=== PATIENT | male | born 1930 | race Caucasian/White ===

== ENCOUNTER 2016-03-10 13:12 | Inpatient (IN) | payer OTHER ==
[~2016-03-10] VITALS: Ht 172.7 cm; Wt 77.3 kg
[~2016-03-10 13:12] MED LIST: ASPEC81 PO; ATOR-22 PO; CLOP1TAB15 PO; FLM4 PO; GLC5 PO; HYDC25 PO; INSDGI SC; METO25TA56 PO; PSYL55.43; [UNRECOGNIZED DRUG - CODE]
[2016-03-10] MEDS ORDERED: LISI-729 PO (14:20)
[2016-03-10] MEDS ORDERED: CHOL1000 PO (14:20)
[2016-03-10] MEDS ORDERED: CYAN10005 PO (14:20)
[2016-03-10] MEDS ORDERED: DOCU100C31 PO (14:20)
[2016-03-10] MEDS ORDERED: AMOX875T PO (14:20)
[2016-03-10] MEDS ORDERED: MAGN400T6 PO (14:20)
[2016-03-10] MEDS ORDERED: NVLG SQ (14:20)
--- NOTE | 2016-03-10 14:21 | DIAGNOSTIC IMAGING REPORT ---
CHEST ONE VIEW PORTABLE CLINICAL HISTORY: Respiratory distress, shortness of breath, cough, fever. COMPARISON STUDY: No previous studies for comparison. FINDINGS: The heart is normal in size. There is no failure. There is suspected underlying emphysema. There is no focal pulmonary consolidation. There is blunting of the lateral costophrenic angle suggesting trace effusions.[ IMPRESSION: Possible trace pleural effusions. No evidence of focal pulmonary consolidation. No evidence of failure. Electronically signed by: Golden Campa M.D. 03/10/2016 2:19 PM Dictated Date/Time: 03/10/2016 2:18 PM
[2016-03-10 15:53] LABS: BASO % 0.4 %; BASO ABS # 0.02 K/uL (0-0.2); COMPLETE YES; EOS % 1.5 %; HEMATOCRIT 39.3 % (42-52); IG% 0.6 %; LYMPH % 19.2 %; LYMPH ABS # 1.02 K/uL (1.2-3.4); MEAN CELL VOLUME 91.2 fL (80-100); MEAN CORPUSCULAR HEMOGLOBIN 31.1 pg (25-34); MEAN CORPUSCULAR HGB CONC 34.1 g/dl (32-36); MEAN PLATELET VOLUME 10.1 fL (7.4-10.4); NEUT % 62.3 %; PLATELET COUNT 146 K/uL (130-400); RED BLOOD COUNT 4.31 M/uL (4.7-6.1); WHITE BLOOD COUNT 5.32 K/uL (4.8-10.8)
[2016-03-10 16:01] LABS: PARTIAL THROMBOPLASTIN RATIO 0.8; PROTHROMBIN TIME (PATIENT) 10.6 SECONDS (9.0-12.0)
[2016-03-10] MEDS ORDERED: OPTIRAY 320 IV PRN (16:15)
[2016-03-10 16:42] LABS: ALT/SGPT 20 U/L (12-78); BLOOD UREA NITROGEN 23 mg/dl (7-18); BUN/CREATININE RATIO 17.5 (10-20); CALCIUM 9.2 mg/dl (8.5-10.1); CARBON DIOXIDE 29 mmol/L (21-32); CHLORIDE 99 mmol/L (98-107); GLUCOSE 89 mg/dl (70-99); POTASSIUM 4.4 mmol/L (3.5-5.1); SODIUM 137 mmol/L (136-145)
[2016-03-10 16:46] LABS: ALB/GLOB RATIO 0.9 (0.9-2); ALKALINE PHOSPHATASE 63 U/L (45-117); AST/SGOT 19 U/L (15-37)
--- NOTE | 2016-03-10 17:26 | EMERGENCY ROOM VISIT NOTE ---
History Report prepared by Fabien: Luci Duffy Under the Supervision of: Dr. Samir Xiong M.D. First contact with patient: 13:48 Chief Complaint: FLU LIKE SX Stated Complaint: COUGH,FEVER [id number] History of Present Illness The patient is an 85 year old male who presents to the Emergency Room with complaints of persistent cough and flu like symptoms over the past 4 weeks. Currently, he is in mild discomfort as he states that he feels generally weak and tired, but he denies specific pain or discomfort. Since the time of onset, patient has had a nonproductive cough as well as shortness of breath, which worsens with attempts of exertion. After having a coughing fit, patient states that has been developing headaches. He also notes sinus congestions and rhinorrhea. Patient states that he has been experiencing intermittent hot flashes and cold chills, which have become worse over the past two days, but he is unsure if he has been febrile as he has not taken his temperature. 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 However, as his symptoms became worse today, he came to the ED for further evaluation. Patient does note feeling nauseous and states that he has been passing gas/burping more frequently, but he denies having abdominal pain, vomiting, diarrhea or urinary symptoms. He is currently on Plavix. Of note he has been on Augmentin, as prescribed by Dr. Medellin, for 2-3 days. Source of History: patient Onset: over the past 4 weeks Position: chest Symptom Intensity: mild Quality: other (cough) Timing: worsening Modifying Factors (Worsening): exertion Associated Symptoms: + SOB, + cough, + headache, + nausea, + weakness, No abdominal pain, No chest pain, No diarrhea, No urinary symptoms, No vomiting Note: Patient has had hot flashes and cold chills, intermittently. Review of Systems See HPI for pertinent positives & negatives. A total of 10 systems reviewed and were otherwise negative. Past Medical & Surgical Medical Problems: (1) BPH (benign prostatic hypertrophy) (2) CAD (coronary artery disease) (3) Chronic sinusitis (4) CKD (chronic kidney disease), stage III (5) DM type 2 (diabetes mellitus, type 2) (6) Hyperlipidemia (7) Hypertension (8) Nasal polyps Surgical Problems: (1) History of cataract surgery (2) S/P coronary artery stent placement (3) S/P tonsillectomy and adenoidectomy (4) Status post Mohs surgery Social History Smoking Status: Never Smoker Marital Status: Housing Status: lives with significant other Occupation Status: retired Current/Historical Medications Scheduled Amoxicillin & Pot Clavulanate (Augmentin 875-125 mg), 1 TAB PO BID Aspirin Enteric Coated (Ecotrin Or Generic *), 81 MG PO DAILY Atorvastatin (Lipitor), 20 MG PO DAILY Cholecalciferol (Vitamin D3), 1,000 UNITS PO DAILY Clopidogrel (Plavix), 75 MG PO DAILY Cyanocobalamin (Vitamin B-12), 1,000 MCG PO DAILY Docusate Sodium (Docusate Sodium), 100 MG PO DAILY Hydrochlorothiazide (Hctz *), 25 MG PO DAILY Insulin Aspart (Novolog), 6-8 UNITS SQ QPM Insulin Glargine (Lantus Solostar), 13 UNITS SC QAM Lisinopril (Zestril), 2.5 MG PO DAILY Magnesium Oxide (Mag-Ox), 400 MG PO DAILY Metoprolol Tartrate (Lopressor) (Lopressor), 25 MG PO DAILY Metronidazole (Topical) (Metrocream), 1 APPLN TOP DAILY Multiple Vitamins W/ Minerals (Centrum Silver Adult 50+), 1 TAB PO DAILY Psyllium (Metamucil Multihealth Fib), 3.4 GM PO DAILY Tamsulosin HCl (Tamsulosin HCl), 0.4 MG PO DAILY Scheduled PRN Ibuprofen (Ibuprofen), 600 MG PO Q6 PRN for Pain Allergies Coded Allergies: No Known Allergies (Verified , ., 03/10/16) Physical Exam Vital Signs Date Time Temp Pulse Resp B/P Pulse Ox O2 Delivery O2 Flow Rate FiO2 03/10/16 17:56 89 17 162/77 95 Room Air 03/10/16 15:40 83 17 133/80 95 Room Air 03/10/16 14:32 104 03/10/16 14:16 95 Room Air 03/10/16 13:26 36.8 88 18 128/69 96 Room Air Physical Exam GENERAL: Patient is in no acute distress. HEENT: No acute trauma, normocephalic atraumatic, mucous membranes moist, no nasal congestion, no scleral icterus. NECK: No stridor, no adenopathy, no meningismus, trachea is midline. LUNGS: Diminished breath sounds, bilaterally. No wheezing or rhonchi. Breath sounds are equal. No respiratory distress. Dry cough noted. HEART: Without murmurs gallops or rubs, regular rate and rhythm. ABDOMEN: Soft, nontender, bowel sounds positive, no hernias, no peritonitis. EXTREMITIES: No cyanosis or edema, full range of motion of all the joints without pain or difficulty, no signs for acute trauma. NEUROLOGIC: Oriented x 3, no acute motor or sensory deficits, no focal weakness. SKIN: No rash, no jaundice, no diaphoresis. Medical Decision & Procedures ER Provider Diagnostic Interpretation: X-ray results as stated below per interpretation by me and the radiologist: CT results as stated below per my review and radiologist interpretation: CHEST ONE VIEW PORTABLE CLINICAL HISTORY: Respiratory distress, shortness of breath, cough, fever. COMPARISON STUDY: No previous studies for comparison. FINDINGS: The heart is normal in size. There is no failure. There is suspected underlying emphysema. There is no focal pulmonary consolidation. There is blunting of the lateral costophrenic angle suggesting trace effusions.[ IMPRESSION: Possible trace pleural effusions. No evidence of focal pulmonary consolidation. No evidence of failure. Electronically signed by: Golden Campa M.D. 03/10/2016 2:19 PM Dictated Date/Time: 03/10/2016 2:18 PM CHEST CTA for PULMONARY ARTERIES CT DOSE: 392.03 mGy.cm HISTORY: Cough. Fever. TECHNIQUE: Multiaxial CT images of the chest were performed following the intravenous administration of contrast to evaluate the pulmonary arteries. Maximal intensity projection images were also obtained. COMPARISON STUDY: Chest 03/10/2016. FINDINGS: There is a normal caliber thoracic aorta with no evidence for dissection. There is no evidence for pulmonary embolus. No pleural effusions. No pneumothorax. The liver and spleen are unremarkable. No mediastinal or hilar lymphadenopathy. The central airways are patent. Mild motion artifact. Faint patchy perihilar groundglass densities. There are few subcentimeter nodules within the right lower lobe with the largest measuring 6 mm. Mild bronchial wall thickening. There is a 12 mm hypodense lesion within the uncinate process of the pancreas. A few thyroid nodules with the largest on the right measuring 3.5 cm. IMPRESSION: 1. No evidence for pulmonary embolus. 2. Faint patchy perihilar groundglass densities. This likely represents a mild pneumonitis. 3. A few subcentimeter nodules within the right lower lobe with the largest Laboratory Results Test 03/10/16 15:22 03/10/16 15:30 Immature Granulocyte % (Auto) 0.6 % White Blood Count 5.32 K/uL (4.8-10.8) Red Blood Count 4.31 M/uL (4.7-6.1) Hemoglobin 13.4 g/dL (14.0-18.0) Hematocrit 39.3 % (42-52) Mean Corpuscular Volume 91.2 fL (80-100) Mean Corpuscular Hemoglobin 31.1 pg (25-34) Mean Corpuscular Hemoglobin Concent 34.1 g/dl (32-36) Platelet Count 146 K/uL (130-400) Mean Platelet Volume 10.1 fL (7.4-10.4) Neutrophils (%) (Auto) 62.3 % Lymphocytes (%) (Auto) 19.2 % Monocytes (%) (Auto) 16.0 % Eosinophils (%) (Auto) 1.5 % Basophils (%) (Auto) 0.4 % Neutrophils # (Auto) 3.32 K/uL (1.4-6.5) Lymphocytes # (Auto) 1.02 K/uL (1.2-3.4) Monocytes # (Auto) 0.85 K/uL (0.11-0.59) Eosinophils # (Auto) 0.08 K/uL (0-0.5) Basophils # (Auto) 0.02 K/uL (0-0.2) Immature Granulocyte # (Auto) 0.03 K/uL (0.00-0.02) Prothrombin Time 10.6 SECONDS (9.0-12.0) Prothromb Time International Ratio 1.0 (0.9-1.1) Activated Partial Thromboplast Time 20.7 SECONDS (21.0-31.0) Partial Thromboplastin Ratio 0.8 Total Bilirubin 0.4 mg/dl (0.2-1) Aspartate Amino Transf (AST/SGOT) 19 U/L (15-37) Alanine Aminotransferase (ALT/SGPT) 20 U/L (12-78) Alkaline Phosphatase 63 U/L (45-117) Troponin I < 0.015 ng/ml (0-0.045) Total Protein 7.1 gm/dl (6.4-8.2) Albumin 3.3 gm/dl (3.4-5.0) Globulin 3.8 gm/dl (2.5-4.0) Albumin/Globulin Ratio 0.9 (0.9-2) Influenza Type A (RT-PCR) Neg for Influ A (NEG) Influenza Type B (RT-PCR) Neg for Influ B (NEG) Laboratory results reviewed by me. Medications Administered Medications (Trade) Dose Ordered Sig/Guevara Route Start Time Stop Time Status Last Admin Dose Admin Levofloxacin (Levaquin / D5W) 750 mg NOW STAT IV 03/10/16 18:21 03/10/16 18:22 DC 03/10/16 18:38 750 MG ECG Indication: SOB/dyspnea Rate (beats per minute): 88 Rhythm: normal sinus Findings: no acute ischemic change, no ectopy ED Course 1350: The patient was evaluated in room B11. A complete history and physical exam was performed. 1600: Upon reevaluation, the patient was doing well and appeared to be resting more comfortably. He will go to CT for further testing. 181: I reevaluated the patient at this time and updated him on the results of his radiology reports and lab tests. The hospitalist will be contacted. 182: Levofloxacin 750 mg IV was ordered. 182: After discussion with Leona Cardoza PA-C, the patient will continue to be evaluated by the [facility] hospitalist for further management. The patient verbalized his understanding and agreement with this treatment plan. Medical Decision The patient is an 85 year old male who presents to the ED with complaints of worsening shortness cough and flu like symptoms over the past 4 weeks. Differential diagnoses considered include pneumonia, bronchitis, CHF, cardiac ischemia, influenza, malignancy, and PE. There is no leukocytosis or concerning anemia. No significant electrolyte abnormality, kidney failure or hepatitis. There is no coagulopathy. EKG shows a sinus rhythm, no acute ischemia. Cardiac enzyme testing times one is not consistent with acute cardiac injury. Chest x-ray does not show any pneumonia, CHF or pneumothorax. Influenza testing was negative. Chest CT shows a diffuse pneumonia, there was no pneumothorax or evidence for PE. The patient was given IV Levaquin. He is already on Augmentin and has not noted any improvement, he has worsening shortness of breath with exertion. Given the ongoing symptoms, given the failure of outpatient treatment, admission /observation was warranted. I spoke to the patient and case management. The on -call hospitalist was consulted. Consults Time Called: [id number] Consulting Physician: Leona Jonas Returned Call: [phone] Discussed the patient's case. He will continue to be evaluated by the [facility] hospitalist for further management. Impression Primary Impression: Pneumonia Additional Impressions: Shortness of breath Failure of outpatient treatment Scribe Attestation The scribe's documentation has been prepared under my direction and personally reviewed by me in its entirety. I confirm that the note above accurately reflects all work, treatment, procedures, and medical decision making performed by me. Departure Information Dispostion Being Evaluated By Hospitalist ([facility]) Referrals Houston Leyva M.D. (PCP) Problem Qualifiers
[2016-03-10 17:41] LABS: INFLUENZA A PCR Neg for Influ A (NEG); INFLUENZA B PCR Neg for Influ B (NEG)
--- NOTE | 2016-03-10 17:56 | DIAGNOSTIC IMAGING REPORT ---
CHEST CTA for PULMONARY ARTERIES CT DOSE: 392.03 mGy.cm HISTORY: Cough. Fever. TECHNIQUE: Multiaxial CT images of the chest were performed following the intravenous administration of contrast to evaluate the pulmonary arteries. Maximal intensity projection images were also obtained. COMPARISON STUDY: Chest 03/10/2016. FINDINGS: There is a normal caliber thoracic aorta with no evidence for dissection. There is no evidence for pulmonary embolus. No pleural effusions. No pneumothorax. The liver and spleen are unremarkable. No mediastinal or hilar lymphadenopathy. The central airways are patent. Mild motion artifact. Faint patchy perihilar groundglass densities. There are few subcentimeter nodules within the right lower lobe with the largest measuring 6 mm. Mild bronchial wall thickening. There is a 12 mm hypodense lesion within the uncinate process of the pancreas. A few thyroid nodules with the largest on the right measuring 3.5 cm. IMPRESSION: 1. No evidence for pulmonary embolus. 2. Faint patchy perihilar groundglass densities. This likely represents a mild pneumonitis. 3. A few subcentimeter nodules within the right lower lobe with the largest measuring 6 mm. Please refer to the chart below for recommended follow-up. 4. A 3.5 cm right thyroid nodule. 5. A 12 mm hypodense lesion within the uncinate process of the pancreas. 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 Please refer to below summary of Fleischner criteria recommendations for follow-up of incidental CT nodules (Minor Kinney, Guidelines for management of small pulmonary nodules detected on CT scans: A statement from the Fleischner Society, Radiology 237: [phone].) Low Risk Patient: Minimal or no smoking or other known risk factors for malignancy <=4 mm: No follow-up needed. >4-6 mm: Initial follow-up CT at 12 months; if unchanged, no further follow-up. >6-8 mm: Initial follow-up CT at 6-12 months then at 18-24 months if no change. >8 mm: Follow-up CT at \R\3, 9, 24 months, or PET and/or biopsy. High Risk Patient: History of smoking or other known risk factors <=4 mm: Follow-up at 12 months; if unchanged, no further follow-up. >4-6 mm: Initial follow-up CT at 6-12 months then at 18-24 months if no change. >6-8 mm: Initial follow-up CT at 3-6 months then at 9-12 and 24 months if no change. >8 mm: Same as low risk patient. Note: Nodule size measured as average of length and width. Ground glass or partly solid nodules may require longer follow-up to exclude indolent adenocarcinoma. Electronically signed by: Hugo Garcia M.D. 03/10/2016 5:54 PM Dictated Date/Time: 03/10/2016 5:46 PM
[2016-03-10] MEDS ORDERED: LEVAQUIN 750MG / 150ML D5W IV STA (18:21)
[2016-03-10] MEDS ORDERED: ACETAMINOPHEN 325 MG TAB PO PRN (19:30)
[2016-03-10] MEDS ORDERED: FLM4 PO (19:33)
[2016-03-10] MEDS ORDERED: INSDGIPEN SC (19:33)
[2016-03-10] MEDS ORDERED: METR0.754 TOP (19:33)
[2016-03-10] MEDS ORDERED: MULT-845 PO (19:33)
[2016-03-10] MEDS ORDERED: PSYL58.618 PO (19:33)
[2016-03-10] MEDS ORDERED: MTR600 PO (19:33)
[2016-03-10] MEDS ORDERED: GLUCAGON FOR INJ 1 MG VIAL SQ PRN (19:45)
[2016-03-10] MEDS ORDERED: DEXTROSE 50% 50 ML SYR IV PRN (19:45)
[2016-03-10] MEDS ORDERED: GLUCOSE 10 TABS/TUBE PO PRN (19:45)
[2016-03-10] MEDS ORDERED: GLUCOSE 40% GEL 15 GM TUBE PO PRN (19:45)
[2016-03-10] MEDS ORDERED: HYDROCODONE/HOMATROPINE SYRUP 5MG/1.5MG 5ML UDP PO STA (20:10)
[2016-03-10] MEDS ORDERED: HYDROCODONE/HOMATROPINE SYRUP 5MG/1.5MG 5ML UDP PO PRN (20:15)
[2016-03-10 20:20] VITALS: O2SAT 95; Ht 172.7 cm; Wt 77.3 kg
--- NOTE | 2016-03-10 20:20 | History and Physical ---
History & Physical Date & Time of Service: Mar 10, 2016 at 19:38 Chief Complaint: Cough,Fever [id number] Primary Care Physician: Houston Leyva M.D. History of Present Illness Source: patient, family ( and son at bedside), clinic records This is an 85 year old male with PMH of CAD, DM type 2, HTN, HL, CKD stage III, who presents to the ED with cough. Patient follows with Dr. Leyva for primary care. Illness began approximately 3 weeks ago with dry cough, nasal congestion, intermittent RANDALL attributed to cough, increased JAQUEZ, lethargy, subjective chills and sweats. Patient states JAQUEZ was intermittent in the past several months but worsened a few weeks ago when he became ill. He is now JAQUEZ with one set of stairs. Patient was seen by Dr. Medellin on 03/05 and was prescribed Augmentin. Patient started Augmentin on 03/06 but stopped taking it over the weekend as he felt his symptoms were worsening despite the antibiotic. His appetite has been poor since illness began and reports weight loss of 10 lb in past few weeks. Denies aspiration. He denies sore throat, ear ache, chest pain, dyspnea at rest , abdominal pain, nausea, vomiting, diarrhea, urinary changes, edema, calf pain. Denies hx of lung disease. No recent hospitalization. No recent sick contact with URI symptoms. On review of [facility] records patient was seen in [place] ER on 02/08/16 for SOB and had CXR, CT chest, EKG, labs- unremarkable as per clinic follow up visit note. Past Medical/Surgical History Medical Problems: (1) BPH (benign prostatic hypertrophy) Status: Chronic (2) CAD (coronary artery disease) Status: Chronic (3) CKD (chronic kidney disease), stage III Status: Chronic (4) DM type 2 (diabetes mellitus, type 2) Status: Chronic (5) Hyperlipidemia Status: Chronic (6) Hypertension Status: Chronic Surgical Problems: (1) History of cataract surgery Status: Chronic (2) S/P coronary artery stent placement Permanent Comment: 2 stents approximately 2006 Status: Chronic (3) S/P tonsillectomy and adenoidectomy Status: Chronic (4) Status post Mohs surgery Status: Chronic Family History Diabetes mellitus MOTHER FH: cancer FATHER (colon CA) Hypertension DAUGHTER SON Social History Smoking Status: Former Smoker (quit 60 years ago. prior 1/2 ppd x 5 years.) Alcohol Use: none Drug Use: none Marital Status: Housing status: lives with significant other Occupational Status: retired Multi-Drug Resistant Organisms History of MDRO: No Allergies Coded Allergies: No Known Allergies (Verified , ., 03/10/16) Home Medications Scheduled Amoxicillin & Pot Clavulanate (Augmentin 875-125 mg), 1 TAB PO BID Aspirin Enteric Coated (Ecotrin Or Generic *), 81 MG PO DAILY Atorvastatin (Lipitor), 20 MG PO DAILY Cholecalciferol (Vitamin D3), 1,000 UNITS PO DAILY Clopidogrel (Plavix), 75 MG PO DAILY Cyanocobalamin (Vitamin B-12), 1,000 MCG PO DAILY Docusate Sodium (Docusate Sodium), 100 MG PO DAILY Hydrochlorothiazide (Hctz *), 25 MG PO DAILY Insulin Aspart (Novolog), 6-8 UNITS SQ QPM Insulin Glargine (Lantus Solostar), 13 UNITS SC QAM Lisinopril (Zestril), 2.5 MG PO DAILY Magnesium Oxide (Mag-Ox), 400 MG PO DAILY Metoprolol Tartrate (Lopressor) (Lopressor), 25 MG PO DAILY Metronidazole (Topical) (Metrocream), 1 APPLN TOP DAILY Multiple Vitamins W/ Minerals (Centrum Silver Adult 50+), 1 TAB PO DAILY Psyllium (Metamucil Multihealth Fib), 3.4 GM PO DAILY Tamsulosin HCl (Tamsulosin HCl), 0.4 MG PO DAILY Scheduled PRN Ibuprofen (Ibuprofen), 600 MG PO Q6 PRN for Pain Review of Systems Constitutional: + chills, + problem reported (subjective warmth), + sweats, + weight loss (10 lb in past few weeks) Eyes: No worsening of vision ENT: + nasal symptoms, + problem reported (chronically hard of hearing. has hearing aid. no ear ache.), No sore throat, No trouble swallowing Respiratory: + cough, + dyspnea on exertion, No dyspnea at rest, No sputum Cardiovascular: No chest pain, No orthopnea Abdomen: + problem reported (increased belching), No diarrhea, No nausea, No pain, No vomiting Musculoskeletal: No calf pain, No muscle pain (no diffuse myalgias) Genitourinary - Male: No dysuria, No urinary frequency Neurologic: + problem reported (headache) Endocrine: + problem reported (was having hyperglycemia at home recently and insulin was increased) Hematologic / Lymphatic: No swollen lymph nodes Integumentary: No new/changing skin lesions Physical Exam Vital Signs Date Time Temp Pulse Resp B/P Pulse Ox O2 Delivery O2 Flow Rate FiO2 03/10/16 17:56 89 17 162/77 95 Room Air 03/10/16 15:40 83 17 133/80 95 Room Air 03/10/16 14:32 104 03/10/16 14:16 95 Room Air 03/10/16 13:26 36.8 88 18 128/69 96 Room Air General Appearance: WD/WN, no apparent distress, + pertinent finding (pleasant elderly female ) Head: normocephalic, atraumatic Eyes: normal inspection, PERRL, EOMI, sclerae normal ENT: pharynx normal, + pertinent finding (bilateral canals obstructed by cerumen. hard of hearing. ) Neck: supple, no adenopathy, trachea midline Respiratory/Chest: no respiratory distress, no accessory muscle use, + decreased breath sounds, + pertinent finding (no wheezing, crackles, rhonchi) Cardiovascular: regular rate, rhythm, no murmur Abdomen/GI: normal bowel sounds, non tender, soft Extremities/Musculoskelatal: normal inspection, no calf tenderness, no pedal edema Neurologic/Psych: alert, normal mood/affect, oriented x 3, + pertinent finding (grossly nonfocal) Skin: normal color, warm/dry, + pertinent finding (plantar wart on left foot) Diagnostics Laboratory Results Results Past 24 Hours Test 03/10/16 15:22 03/10/16 15:30 Range/Units White Blood Count 5.32 4.8-10.8 K/uL Red Blood Count 4.31 4.7-6.1 M/uL Hemoglobin 13.4 14.0-18.0 g/dL Hematocrit 39.3 42-52 % Mean Corpuscular Volume 91.2 80-100 fL Mean Corpuscular Hemoglobin 31.1 25-34 pg Mean Corpuscular Hemoglobin Concent 34.1 32-36 g/dl Platelet Count 146 130-400 K/uL Mean Platelet Volume 10.1 7.4-10.4 fL Neutrophils (%) (Auto) 62.3 % Lymphocytes (%) (Auto) 19.2 % Monocytes (%) (Auto) 16.0 % Eosinophils (%) (Auto) 1.5 % Basophils (%) (Auto) 0.4 % Neutrophils # (Auto) 3.32 1.4-6.5 K/uL Lymphocytes # (Auto) 1.02 1.2-3.4 K/uL Monocytes # (Auto) 0.85 0.11-0.59 K/uL Eosinophils # (Auto) 0.08 0-0.5 K/uL Basophils # (Auto) 0.02 0-0.2 K/uL RDW Standard Deviation 42.0 36.4-46.3 fL RDW Coefficient of Variation 12.5 11.5-14.5 % Immature Granulocyte % (Auto) 0.6 % Immature Granulocyte # (Auto) 0.03 0.00-0.02 K/uL Prothrombin Time 10.6 9.0-12.0 SECONDS Prothromb Time International Ratio 1.0 0.9-1.1 Activated Partial Thromboplast Time 20.7 21.0-31.0 SECONDS Partial Thromboplastin Ratio 0.8 Sodium Level 137 136-145 mmol/L Potassium Level 4.4 3.5-5.1 mmol/L Chloride Level 99 98-107 mmol/L Carbon Dioxide Level 29 21-32 mmol/L Anion Gap 9.0 3-11 mmol/L Blood Urea Nitrogen 23 7-18 mg/dl Creatinine 1.30 0.60-1.40 mg/dl Est Creatinine Clear Calc Drug Dose 39.5 ml/min Estimated GFR () 57.3 Estimated GFR (Non- 49.4 BUN/Creatinine Ratio 17.5 10-20 Random Glucose 89 70-99 mg/dl Calcium Level 9.2 8.5-10.1 mg/dl Total Bilirubin 0.4 0.2-1 mg/dl Aspartate Amino Transf (AST/SGOT) 19 15-37 U/L Alanine Aminotransferase (ALT/SGPT) 20 12-78 U/L Alkaline Phosphatase 63 45-117 U/L Troponin I < 0.015 0-0.045 ng/ml Total Protein 7.1 6.4-8.2 gm/dl Albumin 3.3 3.4-5.0 gm/dl Globulin 3.8 2.5-4.0 gm/dl Albumin/Globulin Ratio 0.9 0.9-2 Influenza Type A (RT-PCR) Neg for Influ A NEG Influenza Type B (RT-PCR) Neg for Influ B NEG Microbiology Results 03/10/16 Blood Culture, Received Pending 03/10/16 Blood Culture, Received Pending Diagnostic Radiology CHEST ONE VIEW PORTABLE CLINICAL HISTORY: Respiratory distress, shortness of breath, cough, fever. COMPARISON STUDY: No previous studies for comparison. FINDINGS: The heart is normal in size. There is no failure. There is suspected underlying emphysema. There is no focal pulmonary consolidation. There is blunting of the lateral costophrenic angle suggesting trace effusions.[ IMPRESSION: Possible trace pleural effusions. No evidence of focal pulmonary consolidation. No evidence of failure. CHEST CTA for PULMONARY ARTERIES CT DOSE: 392.03 mGy.cm HISTORY: Cough. Fever. TECHNIQUE: Multiaxial CT images of the chest were performed following the intravenous administration of contrast to evaluate the pulmonary arteries. Maximal intensity projection images were also obtained. COMPARISON STUDY: Chest 03/10/2016. FINDINGS: There is a normal caliber thoracic aorta with no evidence for dissection. There is no evidence for pulmonary embolus. No pleural effusions. No pneumothorax. The liver and spleen are unremarkable. No mediastinal or hilar lymphadenopathy. The central airways are patent. Mild motion artifact. Faint patchy perihilar groundglass densities. There are few subcentimeter nodules within the right lower lobe with the largest measuring 6 mm. Mild bronchial wall thickening. There is a 12 mm hypodense lesion within the uncinate process of the pancreas. A few thyroid nodules with the largest on the right measuring 3.5 cm. IMPRESSION: 1. No evidence for pulmonary embolus. 2. Faint patchy perihilar groundglass densities. This likely represents a mild pneumonitis. 3. A few subcentimeter nodules within the right lower lobe with the largest measuring 6 mm. Please refer to the chart below for recommended follow-up. 4. A 3.5 cm right thyroid nodule. 5. A 12 mm hypodense lesion within the uncinate process of the pancreas. 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 Please refer to below summary of Fleischner criteria recommendations for follow-up of incidental CT nodules ([place]or [place], Guidelines for management of small pulmonary nodules detected on CT scans: A statement from the Fleischner Society, Radiology 237: [phone].) Low Risk Patient: Minimal or no smoking or other known risk factors for malignancy <=4 mm: No follow-up needed. >4-6 mm: Initial follow-up CT at 12 months; if unchanged, no further follow-up. >6-8 mm: Initial follow-up CT at 6-12 months then at 18-24 months if no change. >8 mm: Follow-up CT at \R\3, 9, 24 months, or PET and/or biopsy. High Risk Patient: History of smoking or other known risk factors <=4 mm: Follow-up at 12 months; if unchanged, no further follow-up. >4-6 mm: Initial follow-up CT at 6-12 months then at 18-24 months if no change. >6-8 mm: Initial follow-up CT at 3-6 months then at 9-12 and 24 months if no change. >8 mm: Same as low risk patient. Note: Nodule size measured as average of length and width. Ground glass or partly solid nodules may require longer follow-up to exclude indolent adenocarcinoma. EKG NSR, no T wave or ST abnormalities Impression Assessment and Plan COMMUNITY ACQUIRED PNEUMONIA Failed outpatient treatment with Augmentin CT chest- neg for PE, + 2. faint patchy perihilar ground glass densities- likely mild pneumonitis Influenza PCR negative Afebrile, no leukocytosis Blood cultures pending Not bringing up any sputum to culture Received 1 dose empiric Levaquin in ER Continue Levaquin with renal dosing for Creat clearance 39.5 CAD S/p stents x 2 approximately 2006 Normal stress test 11/07/14 Stable, no angina Continue aspirin, statin, Plavix, PITO-I, BB Follows with Dr. Perry DM TYPE 2 Recent hyperglycemia at home, then insulin adjusted- random glucose 89 in ER Continue Lantus Insulin sliding scale Check A1c in am HYPERTENSION BP mildly elevated in ER Continue HCTZ, lisinopril, metoprolol CKD STAGE III Cr is stable from baseline of 1.4 Monitor renal function Avoid nephrotoxins LUNG NODULES Noted on CT chest Patient made aware Monitor as outpatient PANCREATIC CYST Noted on CT chest Patient made aware F/u as outpatient THYROID NODULE Noted on CT chest Follow up as outpatient BPH Continue Flomax DVT PROPHYLAXIS Lovenox SQ CODE STATUS Full code per my discussion with the patient DISPOSITION Lives with Follows with Dr. Leyva for primary care and Dr. Perry for cardiology Patient seen in collaboration with Dr. Mckeon. Please see his addendum. Attending Addendum: The patient was seen and examined in ER Complains of bouts of cough ,little sputum Moderate SOB at rest ,no chest pain Chills but no fever O/E Hemodynamically stable Chest-decreased breath sound bilaterally ,crackles at the bases Heart-regular,no murmur appreciated Abdomen-benign ,no masses,bowel sound present Extremities-no edema Labs and imaging studies were reviewed Has CAP Agree with the assessment and plan. DR Yessy Mckeon VTE Prophylaxis VTE Risk Assessment Done? Y/N: Yes Risk Level: Moderate
[2016-03-10 20:47] VITALS: BP 150/72; PULSE 93; TEMP 36.7; O2SAT 95
[2016-03-10] MEDS: CARBAMIDE PEROXIDE 6.5% 15 ML BTL OT SCH (22:12)
[2016-03-10] MEDS: INSULIN ASPART 100 UNITS/ML 3 ML PEN SC SCH (22:18)
[2016-03-10] MEDS: ENOXAPARIN 40 MG/0.4 ML SYR SQ SCH (22:19)
[2016-03-10 23:07] VITALS: BP 151/84; PULSE 94; TEMP 36.8; O2SAT 96
[2016-03-11] MEDS: ONDANSETRON INJ 2 MG/ML 2 ML VIAL IV PRN ×2 (05:28→13:00)
[2016-03-11 05:55] LABS: HEMATOCRIT 37.4 % (42-52); MEAN CORPUSCULAR HEMOGLOBIN 30.4 pg (25-34); MEAN CORPUSCULAR HGB CONC 33.4 g/dl (32-36); MEAN PLATELET VOLUME 10.3 fL (7.4-10.4); PLATELET COUNT 137 K/uL (130-400); RED BLOOD COUNT 4.11 M/uL (4.7-6.1); WHITE BLOOD COUNT 5.64 K/uL (4.8-10.8)
[2016-03-11 06:27] LABS: ESTIMATED AVERAGE GLUCOSE 154 mg/dl; HA1C FLAG Normal (Normal)
[2016-03-11 06:31] LABS: BUN/CREATININE RATIO 15.5 (10-20); CALCIUM 8.7 mg/dl (8.5-10.1); CREATININE 1.3 mg/dl (0.60-1.40); MAGNESIUM 1.7 mg/dl (1.8-2.4); POTASSIUM 4.2 mmol/L (3.5-5.1)
[2016-03-11 06:51] VITALS: BP 130/75; PULSE 84; TEMP 36.5; O2SAT 93
[2016-03-11 08:00] VITALS: O2SAT 93
[2016-03-11] MEDS: CARBAMIDE PEROXIDE 6.5% 15 ML BTL OT SCH ×2 (08:29→21:15)
[2016-03-11] MEDS: CEROVITE ADV FORMULA TAB PO SCH (08:30)
[2016-03-11] MEDS: MAGNESIUM OXIDE 400 MG TAB PO SCH (08:30)
[2016-03-11] MEDS: TAMSULOSIN HCL 0.4 MG CAP PO SCH (08:30)
[2016-03-11] MEDS: HYDROCHLOROTHIAZIDE 25 MG TAB PO SCH (08:30)
[2016-03-11] MEDS: LISINOPRIL 2.5 MG TAB PO SCH (08:30)
[2016-03-11] MEDS: METOPROLOL TARTRATE 25 MG TAB PO SCH (08:30)
[2016-03-11] MEDS: CLOPIDOGREL BISULFATE 75 MG TAB PO SCH (08:32)
[2016-03-11] MEDS: ATORVASTATIN 20 MG TAB PO SCH (08:32)
[2016-03-11] MEDS: ASPIRIN 81 MG ECTAB PO SCH (08:32)
[2016-03-11] MEDS: CYANOCOBALAMIN 500 MCG TAB (VIT B-12) PO SCH (08:32)
[2016-03-11] MEDS: PSYLLIUM 58.6% PWD PACK S\\F PO SCH (08:33)
[2016-03-11] MEDS: CHOLECALCIFEROL 1000 INTER.UNIT TAB PO SCH (08:33)
[2016-03-11] MEDS ORDERED: DOCUSATE SODIUM 100 MG CAP PO SCH (09:00)
[2016-03-11] MEDS: INSULIN ASPART 100 UNITS/ML 3 ML PEN SC SCH ×4 (09:19→21:20)
[2016-03-11] MEDS: INSULIN GLARGINE SOLOSTAR 100 UNITS/ML 3 ML PEN SC SCH (09:20)
[2016-03-11] MEDS ORDERED: DOCUSATE SODIUM 100 MG CAP PO ONE (14:00)
[2016-03-11] MEDS ORDERED: BISACODYL 5 MG TABEC PO ONE (14:00)
[2016-03-11] MEDS ORDERED: PANTOprazole SOD 40 MG TAB PO ONE (14:00)
--- NOTE | 2016-03-11 15:06 | Progress Note ---
Subjective Date of Service: Mar 11, 2016. Subjective Pt evaluation today including: conversation w/ patient, physical exam, lab review, review of studies, review of inpatient medication list Saw/examined the patient in room 262 Complaining of nausea this morning +constipation - no BM for two days +cough +reflux symptoms Problem List Medical Problems: (1) Failure of outpatient treatment Status: Acute (2) Pneumonia Status: Acute (3) Shortness of breath Status: Acute Review of Systems Constitutional: No chills, No fever Respiratory: + cough, + dyspnea on exertion, + shortness of breath, + sputum, No wheezing Cardiac: No chest pain, No edema, No palpitations Abdomen: + constipation, + nausea, No GI bleeding, No diarrhea, No pain, No vomiting Medications Current Inpatient Medications Medications (Trade) Dose Ordered Sig/Guevara Route Start Time Stop Time Status Last Admin Dose Admin Ioversol (Optiray 320) 125 ml UD PRN IV 03/10/16 16:15 03/14/16 16:14 Enoxaparin Sodium (Lovenox Inj) 40 mg Q24H SQ 03/10/16 21:00 04/09/16 20:59 03/10/16 22:19 40 MG Acetaminophen (Tylenol Tab) 650 mg Q4H PRN PO 03/10/16 19:30 04/09/16 19:29 Ondansetron HCl 4 mg 4 mg Q6H PRN IV 03/10/16 19:30 04/09/16 19:29 03/11/16 13:00 4 MG Levofloxacin/Prmx (Levaquin / D5W/ Premixed D5W) 150 ml @ 100 mls/hr Q2D@1800 IV 03/12/16 18:00 03/17/16 17:59 Aspirin (Ecotrin Tab) 81 mg DAILY PO 03/11/16 09:00 04/10/16 08:59 03/11/16 08:32 81 MG Atorvastatin Calcium (Lipitor Tab) 20 mg DAILY PO 03/11/16 09:00 04/10/16 08:59 03/11/16 08:32 20 MG Cholecalciferol (Vitamin D Tab) 1,000 inter.unit DAILY PO 03/11/16 09:00 04/10/16 08:59 03/11/16 08:33 1,000 INTER.UNIT Clopidogrel Bisulfate (plAVix TAB) 75 mg DAILY PO 03/11/16 09:00 04/10/16 08:59 03/11/16 08:32 75 MG Cyanocobalamin (Vitamin B-12 Tab) 1,000 mcg DAILY PO 03/11/16 09:00 04/10/16 08:59 03/11/16 08:32 1,000 MCG Docusate Sodium (coLACE CAP) 100 mg DAILY PO 03/11/16 09:00 04/10/16 08:59 03/11/16 08:32 100 MG Hydrochlorothiazide (Hydrochlorothiazide Tab) 25 mg DAILY PO 03/11/16 09:00 04/10/16 08:59 03/11/16 08:30 25 MG Insulin Glargine (Lantus Solostar Pen) 13 unit QAM SC 03/11/16 09:00 04/10/16 08:59 03/11/16 09:20 13 UNIT Lisinopril (Zestril Tab) 2.5 mg DAILY PO 03/11/16 09:00 04/10/16 08:59 03/11/16 08:30 2.5 MG Magnesium Oxide (Mag-Ox Tab) 400 mg DAILY PO 03/11/16 09:00 04/10/16 08:59 03/11/16 08:30 400 MG Metoprolol Tartrate (Lopressor Tab) 25 mg DAILY PO 03/11/16 09:00 04/10/16 08:59 03/11/16 08:30 25 MG Multivitamins/ Minerals (Multivitamin W/ Minerals Tab) 1 tab DAILY PO 03/11/16 09:00 04/10/16 08:59 03/11/16 08:30 1 TAB Tamsulosin HCl (Flomax Cap) 0.4 mg DAILY PO 03/11/16 09:00 04/10/16 08:59 03/11/16 08:30 0.4 MG Miscellaneous Information (Order Awaiting Action) 1 ea QS N/A 03/11/16 00:00 04/10/16 00:00 Psyllium Hydrophilic Mucilloid (Metamucil Powder) 1 pkt DAILY PO 03/11/16 09:00 04/10/16 08:59 03/11/16 08:33 1 PKT Insulin Aspart (novoLOG ASPART) SLIDING SCALE If C... ACHS SC 03/10/16 21:00 04/09/16 20:59 03/11/16 12:58 5 UNITS Glucose (Glucose 40% Gel) 15-30 GRAMS 15 GRAMS... UD PRN PO 03/10/16 19:45 04/09/16 19:44 Glucose (Glucose Chew Tab) 4-8 Tablets 4 Tabl... UD PRN PO 03/10/16 19:45 04/09/16 19:44 Dextrose (Dextrose 50% 50ML Syringe) 25-50ML OF 50% DW IV FOR... UD PRN IV 03/10/16 19:45 04/09/16 19:44 Glucagon (Glucagon Inj) 1 mg UD PRN SQ 03/10/16 19:45 04/09/16 19:44 Carbamide Peroxide (Earwax Removal Soln) 5 drops BID OT 03/10/16 21:00 03/14/16 20:59 03/11/16 08:29 5 DROPS Hydrocodone Bit/ Homatropine Methylb (Hycodan Syrup) 5 ml Q6H PRN PO 03/10/16 20:15 03/24/16 20:14 Objective Vital Signs Date Time Temp Pulse Resp B/P Pulse Ox O2 Delivery O2 Flow Rate FiO2 03/11/16 08:00 93 Room Air 03/11/16 06:51 36.5 84 16 130/75 93 Room Air 03/11/16 00:15 Room Air 03/10/16 23:07 36.8 94 18 151/84 96 Room Air 03/10/16 20:47 36.7 93 18 150/72 95 Room Air 03/10/16 20:20 95 Room Air 03/10/16 20:01 98 17 145/79 95 Room Air 03/10/16 17:56 89 17 162/77 95 Room Air 03/10/16 15:40 83 17 133/80 95 Room Air 03/10/16 14:32 104 03/10/16 14:16 95 Room Air Physical Exam General Appearance: no apparent distress Respiratory/Chest: lungs clear, normal breath sounds, no respiratory distress, no accessory muscle use Cardiovascular: regular rate, rhythm, no edema, no murmur Abdomen: normal bowel sounds, non tender, soft Extremities: normal inspection, no pedal edema Laboratory Results Last 24 Hours Test 03/10/16 15:22 03/10/16 15:30 03/10/16 21:04 03/11/16 05:36 White Blood Count 5.32 K/uL 5.64 K/uL Red Blood Count 4.31 M/uL 4.11 M/uL Hemoglobin 13.4 g/dL 12.5 g/dL Hematocrit 39.3 % 37.4 % Mean Corpuscular Volume 91.2 fL 91.0 fL Mean Corpuscular Hemoglobin 31.1 pg 30.4 pg Mean Corpuscular Hemoglobin Concent 34.1 g/dl 33.4 g/dl Platelet Count 146 K/uL 137 K/uL Mean Platelet Volume 10.1 fL 10.3 fL Neutrophils (%) (Auto) 62.3 % Lymphocytes (%) (Auto) 19.2 % Monocytes (%) (Auto) 16.0 % Eosinophils (%) (Auto) 1.5 % Basophils (%) (Auto) 0.4 % Neutrophils # (Auto) 3.32 K/uL Lymphocytes # (Auto) 1.02 K/uL Monocytes # (Auto) 0.85 K/uL Eosinophils # (Auto) 0.08 K/uL Basophils # (Auto) 0.02 K/uL RDW Standard Deviation 42.0 fL 41.5 fL RDW Coefficient of Variation 12.5 % 12.5 % Immature Granulocyte % (Auto) 0.6 % Immature Granulocyte # (Auto) 0.03 K/uL Prothrombin Time 10.6 SECONDS Prothromb Time International Ratio 1.0 Activated Partial Thromboplast Time 20.7 SECONDS Partial Thromboplastin Ratio 0.8 Sodium Level 137 mmol/L 135 mmol/L Potassium Level 4.4 mmol/L 4.2 mmol/L Chloride Level 99 mmol/L 97 mmol/L Carbon Dioxide Level 29 mmol/L 27 mmol/L Anion Gap 9.0 mmol/L 11.0 mmol/L Blood Urea Nitrogen 23 mg/dl 20 mg/dl Creatinine 1.30 mg/dl 1.30 mg/dl Est Creatinine Clear Calc Drug Dose 39.5 ml/min 39.5 ml/min Estimated GFR () 57.3 57.3 Estimated GFR (Non- 49.4 49.4 BUN/Creatinine Ratio 17.5 15.5 Random Glucose 89 mg/dl 162 mg/dl Calcium Level 9.2 mg/dl 8.7 mg/dl Total Bilirubin 0.4 mg/dl Aspartate Amino Transf (AST/SGOT) 19 U/L Alanine Aminotransferase (ALT/SGPT) 20 U/L Alkaline Phosphatase 63 U/L Troponin I < 0.015 ng/ml Total Protein 7.1 gm/dl Albumin 3.3 gm/dl Globulin 3.8 gm/dl Albumin/Globulin Ratio 0.9 Influenza Type A (RT-PCR) Neg for Influ A Influenza Type B (RT-PCR) Neg for Influ B Bedside Glucose 179 mg/dl Estimated Average Glucose 154 mg/dl Hemoglobin A1c 7.0 % Magnesium Level 1.7 mg/dl Test 03/11/16 07:41 03/11/16 11:32 Bedside Glucose 164 mg/dl 278 mg/dl Assessment and Plan This is an 85 year old male with PMH of CAD, CKD stage 3, HTN, HLD, insulin dependent DM2 presented with dyspnea on exertion, SOB, chills - was started on Augmentin as an outpatient 2-3 days ago; but symptoms persisted Community Acquired Pneumonia * failed outpatient treatment with Augmentin * Chest CT IMPRESSION: 1. No evidence for pulmonary embolus. 2. Faint patchy perihilar groundglass densities. This likely represents a mild pneumonitis. 3. A few subcentimeter nodules within the right lower lobe with the largest measuring 6 mm. Please refer to the chart below for recommended follow-up. 4. A 3.5 cm right thyroid nodule. 5. A 12 mm hypodense lesion within the uncinate process of the pancreas. 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 * started on Levaquin * influenza negative * vitals, hemodynamically stable, WBC wnl GERD * start PPI * worry about aspiration * CT shows pneumonitis, possible aspiration related? 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
[2016-03-11 16:00] VITALS: O2SAT 93
[2016-03-11 16:02] VITALS: BP 123/73; PULSE 81; TEMP 36.6; O2SAT 93
[2016-03-11] MEDS: DOCUSATE SODIUM 100 MG CAP PO SCH (21:14)
[2016-03-11] MEDS: ENOXAPARIN 40 MG/0.4 ML SYR SQ SCH (21:15)
[2016-03-12 00:21] VITALS: BP 102/58; PULSE 79; TEMP 36.7; O2SAT 94
[2016-03-12 07:35] LABS: HEMATOCRIT 38.9 % (42-52); MEAN CORPUSCULAR HEMOGLOBIN 31.2 pg (25-34); MEAN CORPUSCULAR HGB CONC 33.9 g/dl (32-36); MEAN PLATELET VOLUME 10.2 fL (7.4-10.4); PLATELET COUNT 127 K/uL (130-400); RED BLOOD COUNT 4.23 M/uL (4.7-6.1); WHITE BLOOD COUNT 4.64 K/uL (4.8-10.8)
[2016-03-12 08:18] VITALS: BP 147/74; PULSE 101; TEMP 36.5; O2SAT 94
[2016-03-12 08:23] LABS: BUN/CREATININE RATIO 16.4 (10-20); CREATININE 1.4 mg/dl (0.60-1.40); POTASSIUM 4.4 mmol/L (3.5-5.1)
[2016-03-12] MEDS: CHOLECALCIFEROL 1000 INTER.UNIT TAB PO SCH (08:30)
[2016-03-12] MEDS: SENNA 8.6 MG TAB PO SCH (08:30)
[2016-03-12] MEDS: PANTOprazole SOD 40 MG TAB PO SCH (08:30)
[2016-03-12] MEDS: DOCUSATE SODIUM 100 MG CAP PO SCH ×2 (08:30→20:30)
[2016-03-12] MEDS: MAGNESIUM OXIDE 400 MG TAB PO SCH (08:31)
[2016-03-12] MEDS: CEROVITE ADV FORMULA TAB PO SCH (08:31)
[2016-03-12] MEDS: ASPIRIN 81 MG ECTAB PO SCH (08:31)
[2016-03-12] MEDS: METOPROLOL TARTRATE 25 MG TAB PO SCH (08:31)
[2016-03-12] MEDS: HYDROCHLOROTHIAZIDE 25 MG TAB PO SCH (08:31)
[2016-03-12] MEDS: TAMSULOSIN HCL 0.4 MG CAP PO SCH (08:31)
[2016-03-12] MEDS: LISINOPRIL 2.5 MG TAB PO SCH (08:31)
[2016-03-12] MEDS: PSYLLIUM 58.6% PWD PACK S\\F PO SCH (08:32)
[2016-03-12] MEDS: CLOPIDOGREL BISULFATE 75 MG TAB PO SCH (08:32)
[2016-03-12] MEDS: CYANOCOBALAMIN 500 MCG TAB (VIT B-12) PO SCH (08:32)
[2016-03-12] MEDS: ATORVASTATIN 20 MG TAB PO SCH (08:32)
[2016-03-12] MEDS: INSULIN ASPART 100 UNITS/ML 3 ML PEN SC SCH ×4 (08:38→20:32)
[2016-03-12] MEDS: INSULIN GLARGINE SOLOSTAR 100 UNITS/ML 3 ML PEN SC SCH (08:38)
[2016-03-12] MEDS: CARBAMIDE PEROXIDE 6.5% 15 ML BTL OT SCH ×2 (08:39→20:28)
[2016-03-12] MEDS ORDERED: PHARMACY GLYCEMIC MGMT CONSULT PRN (13:33)
--- NOTE | 2016-03-12 13:58 | Pharmacy Progress Note ---
Glycemic: Assessment & Plan Date of Service Mar 12, 2016. Assessment & Plan Item Value Date Time Bedside Glucose 235 mg/dl H 03/12/16 1134 Bedside Glucose 157 mg/dl H 03/12/16 0749 Random Glucose 133 mg/dl H 03/12/16 0724 Bedside Glucose 203 mg/dl H 03/11/16 1955 Bedside Glucose 109 mg/dl H 03/11/16 1643 Bedside Glucose 278 mg/dl H 03/11/16 1132 Bedside Glucose 164 mg/dl H 03/11/16 0741 Random Glucose 162 mg/dl H 03/11/16 0536 Hemoglobin A1c 7.0 % H 03/11/16 0536 Home Insulin Regimen: * Lantus 13 units sq qam * Novolog SSI * Reported HbA1c = 7% PLAN: The patient is currently receiving ~30 units of insulin per day. He is ordered his home Lantus dose and fasting BSG WNLs. BSGs ranging 133 - 235 mg/ dl over the past 24hrs. I hesitate to make any changes at this time, though will follow BSGs closely during this admission. With advanced age (85 yo), I am satisfied with current hospital BSG control. My goal is to avoid hypoglycemic events and allow pt to f/u in out-pt setting to adjust his overall insulin needs. Again, we will continue to follow pt's BSGs and make changes prn. * Basal insulin: Lantus 13 units every qAM, give 1/2 dose for BSG < 110mg/dL * Correctional Insulin: Novolog Correction per scale ACHS Goal Range: Low 120 mg/dL - High 160 mg/dL for advanced age Correction Factor: 30 mg/dL/unit * Prandial insulin: Per carb ratio of 1 unit per 10 grams CHO consumed No changes needed to inpatient regimen at this time. Pharmacy will continue to monitor patient daily and write orders per [facility] inpatient glycemic control protocol. Thanks. * Please note that the plan above was derived based on current level of insulin resistance and hospital stress. These recommendations are appropriate for inpatient admission only. Plan of care upon discharge will need to be reassessed to avoid potential outpatient hypo/hyperglycemia.
[2016-03-12 15:52] VITALS: BP 114/72; PULSE 51; TEMP 36.7; O2SAT 95
--- NOTE | 2016-03-12 17:12 | Progress Note ---
Subjective Date of Service: Mar 12, 2016. Subjective Pt evaluation today including: conversation w/ patient, physical exam, lab review, review of studies, review of inpatient medication list Saw/examined the patient in room 262 Doing better; breathing better +cough, less sputum production no chest pain +constipation Problem List Medical Problems: (1) Failure of outpatient treatment Status: Acute (2) Pneumonia Status: Acute (3) Shortness of breath Status: Acute Review of Systems Constitutional: No chills, No fever Respiratory: + cough, No dyspnea at rest, No dyspnea on exertion, No hemoptysis , No shortness of breath, No sputum, No wheezing Cardiac: No chest pain, No edema, No palpitations Abdomen: + constipation, No diarrhea, No nausea, No pain, No vomiting Musculoskeletal: No joint pain Male : No dysuria, No urinary frequency Heme: No abnormal bleeding/bruising Medications Current Inpatient Medications Medications (Trade) Dose Ordered Sig/Guevara Route Start Time Stop Time Status Last Admin Dose Admin Ioversol (Optiray 320) 125 ml UD PRN IV 03/10/16 16:15 03/14/16 16:14 Enoxaparin Sodium (Lovenox Inj) 40 mg Q24H SQ 03/10/16 21:00 04/09/16 20:59 03/11/16 21:15 40 MG Acetaminophen (Tylenol Tab) 650 mg Q4H PRN PO 03/10/16 19:30 04/09/16 19:29 Ondansetron HCl 4 mg 4 mg Q6H PRN IV 03/10/16 19:30 04/09/16 19:29 03/11/16 13:00 4 MG Levofloxacin/Prmx (Levaquin / D5W/ Premixed D5W) 150 ml @ 100 mls/hr Q2D@1800 IV 03/12/16 18:00 03/17/16 17:59 Aspirin (Ecotrin Tab) 81 mg DAILY PO 03/11/16 09:00 04/10/16 08:59 03/12/16 08:31 81 MG Atorvastatin Calcium (Lipitor Tab) 20 mg DAILY PO 03/11/16 09:00 04/10/16 08:59 03/12/16 08:32 20 MG Cholecalciferol (Vitamin D Tab) 1,000 inter.unit DAILY PO 03/11/16 09:00 04/10/16 08:59 03/12/16 08:30 1,000 INTER.UNIT Clopidogrel Bisulfate (plAVix TAB) 75 mg DAILY PO 03/11/16 09:00 04/10/16 08:59 03/12/16 08:32 75 MG Cyanocobalamin (Vitamin B-12 Tab) 1,000 mcg DAILY PO 03/11/16 09:00 04/10/16 08:59 03/12/16 08:32 1,000 MCG Hydrochlorothiazide (Hydrochlorothiazide Tab) 25 mg DAILY PO 03/11/16 09:00 04/10/16 08:59 03/12/16 08:31 25 MG Insulin Glargine (Lantus Solostar Pen) 13 unit QAM SC 03/11/16 09:00 04/10/16 08:59 03/12/16 08:38 13 UNIT Lisinopril (Zestril Tab) 2.5 mg DAILY PO 03/11/16 09:00 04/10/16 08:59 03/12/16 08:31 2.5 MG Magnesium Oxide (Mag-Ox Tab) 400 mg DAILY PO 03/11/16 09:00 04/10/16 08:59 03/12/16 08:31 400 MG Metoprolol Tartrate (Lopressor Tab) 25 mg DAILY PO 03/11/16 09:00 04/10/16 08:59 03/12/16 08:31 25 MG Multivitamins/ Minerals (Multivitamin W/ Minerals Tab) 1 tab DAILY PO 03/11/16 09:00 04/10/16 08:59 03/12/16 08:31 1 TAB Tamsulosin HCl (Flomax Cap) 0.4 mg DAILY PO 03/11/16 09:00 04/10/16 08:59 03/12/16 08:31 0.4 MG Miscellaneous Information (Order Awaiting Action) 1 ea QS N/A 03/11/16 00:00 04/10/16 00:00 Psyllium Hydrophilic Mucilloid (Metamucil Powder) 1 pkt DAILY PO 03/11/16 09:00 04/10/16 08:59 03/12/16 08:32 1 PKT Insulin Aspart (novoLOG ASPART) SLIDING SCALE If C... ACHS SC 03/10/16 21:00 03/12/16 12:08 5 UNITS Glucose (Glucose 40% Gel) 15-30 GRAMS 15 GRAMS... UD PRN PO 03/10/16 19:45 04/09/16 19:44 Glucose (Glucose Chew Tab) 4-8 Tablets 4 Tabl... UD PRN PO 03/10/16 19:45 04/09/16 19:44 Dextrose (Dextrose 50% 50ML Syringe) 25-50ML OF 50% DW IV FOR... UD PRN IV 03/10/16 19:45 04/09/16 19:44 Glucagon (Glucagon Inj) 1 mg UD PRN SQ 03/10/16 19:45 04/09/16 19:44 Carbamide Peroxide (Earwax Removal Soln) 5 drops BID OT 03/10/16 21:00 03/14/16 20:59 03/12/16 08:39 5 DROPS Hydrocodone Bit/ Homatropine Methylb (Hycodan Syrup) 5 ml Q6H PRN PO 03/10/16 20:15 03/24/16 20:14 Docusate Sodium (coLACE CAP) 100 mg BID PO 03/11/16 21:00 04/10/16 20:59 03/12/16 08:30 100 MG Senna (Senokot Tab) 8.6 mg QAM PO 03/12/16 09:00 04/11/16 08:59 03/12/16 08:30 8.6 MG Pantoprazole Sodium (Protonix Tab) 40 mg QAM PO 03/12/16 09:00 04/11/16 08:59 03/12/16 08:30 40 MG Miscellaneous Information (Consult Glycemic Management Pharmacy) 1 ea UD PRN N/A 03/12/16 13:33 04/11/16 13:32 Objective Vital Signs Date Time Temp Pulse Resp B/P Pulse Ox O2 Delivery O2 Flow Rate FiO2 03/12/16 16:14 Room Air 03/12/16 15:52 36.7 51 18 114/72 95 Room Air 03/12/16 08:18 36.5 101 20 147/74 94 Room Air 03/12/16 08:10 Room Air 03/12/16 03:48 Room Air 03/12/16 00:21 36.7 79 20 102/58 94 Room Air Physical Exam General Appearance: no apparent distress Respiratory/Chest: lungs clear, normal breath sounds, no respiratory distress, no accessory muscle use Cardiovascular: regular rate, rhythm, no edema, no murmur Abdomen: normal bowel sounds, non tender, soft Laboratory Results Last 24 Hours Test 03/11/16 19:55 03/12/16 07:24 03/12/16 07:49 03/12/16 11:34 Bedside Glucose 203 mg/dl 157 mg/dl 235 mg/dl White Blood Count 4.64 K/uL Red Blood Count 4.23 M/uL Hemoglobin 13.2 g/dL Hematocrit 38.9 % Mean Corpuscular Volume 92.0 fL Mean Corpuscular Hemoglobin 31.2 pg Mean Corpuscular Hemoglobin Concent 33.9 g/dl RDW Standard Deviation 42.7 fL RDW Coefficient of Variation 12.7 % Platelet Count 127 K/uL Mean Platelet Volume 10.2 fL Sodium Level 136 mmol/L Potassium Level 4.4 mmol/L Chloride Level 99 mmol/L Carbon Dioxide Level 27 mmol/L Anion Gap 10.0 mmol/L Blood Urea Nitrogen 23 mg/dl Creatinine 1.40 mg/dl Est Creatinine Clear Calc Drug Dose 36.6 ml/min Estimated GFR () 52.4 Estimated GFR (Non- 45.2 BUN/Creatinine Ratio 16.4 Random Glucose 133 mg/dl Calcium Level 9.0 mg/dl Magnesium Level 2.0 mg/dl Assessment and Plan This is an 85 year old male with PMH of CAD, CKD stage 3, HTN, HLD, insulin dependent DM2 presented with dyspnea on exertion, SOB, chills - was started on Augmentin as an outpatient 2-3 days ago; but symptoms persisted Community Acquired Pneumonia 03/12 * feeling better today * continue Levaquin for now; will d/c home on PO Levaquin * recheck CXR in AM 03/11 * failed outpatient treatment with Augmentin * Chest CT IMPRESSION: 1. No evidence for pulmonary embolus. 2. Faint patchy perihilar groundglass densities. This likely represents a mild pneumonitis. 3. A few subcentimeter nodules within the right lower lobe with the largest measuring 6 mm. Please refer to the chart below for recommended follow-up. 4. A 3.5 cm right thyroid nodule. 5. A 12 mm hypodense lesion within the uncinate process of the pancreas. 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 * started on Levaquin * influenza negative * vitals, hemodynamically stable, WBC wnl GERD 03/12 * continue protonix, will d/c on PPI 03/11 * start PPI * worry about aspiration * CT shows pneumonitis, possible aspiration related? 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
[2016-03-12] MEDS ORDERED: LEVOFLOXACIN / D5W 750 MG in PREMIXED IN D5W 150 ML IV SCH (18:00)
[2016-03-12] MEDS: ENOXAPARIN 40 MG/0.4 ML SYR SQ SCH (20:30)
[2016-03-12 23:54] VITALS: BP 112/65; PULSE 92; TEMP 36.9; O2SAT 96
[2016-03-13] VITALS: O2SAT 96
[2016-03-13 07:00] VITALS: BP 123/71; PULSE 89; TEMP 36.5; O2SAT 95
[2016-03-13 07:41] LABS: HEMATOCRIT 38.9 % (42-52); MEAN CELL VOLUME 91.1 fL (80-100); MEAN CORPUSCULAR HEMOGLOBIN 30.9 pg (25-34); MEAN CORPUSCULAR HGB CONC 33.9 g/dl (32-36); MEAN PLATELET VOLUME 10.4 fL (7.4-10.4); PLATELET COUNT 129 K/uL (130-400); RED BLOOD COUNT 4.27 M/uL (4.7-6.1); WHITE BLOOD COUNT 4.59 K/uL (4.8-10.8)
--- NOTE | 2016-03-13 08:03 | DIAGNOSTIC IMAGING REPORT ---
CHEST 2 VIEWS ROUTINE CLINICAL HISTORY: Pneumonia COMPARISON STUDY: 03/10/2016 FINDINGS: The patient is hyperinflated. Underlying emphysema is suspected. There is no focal pulmonary consolidation. Heart is normal in size. There is no failure. No significant pleural effusions are visualized.[ IMPRESSION: Hyperinflation. No acute findings. Electronically signed by: Golden Campa M.D. 03/13/2016 8:01 AM Dictated Date/Time: 03/13/2016 8:00 AM
[2016-03-13 08:04] LABS: BUN/CREATININE RATIO 17.9 (10-20); CALCIUM 9.1 mg/dl (8.5-10.1); CREATININE 1.4 mg/dl (0.60-1.40); MAGNESIUM 1.9 mg/dl (1.8-2.4)
[2016-03-13] MEDS: PSYLLIUM 58.6% PWD PACK S\\F PO SCH (08:16)
[2016-03-13] MEDS: LISINOPRIL 2.5 MG TAB PO SCH (08:18)
[2016-03-13] MEDS: CLOPIDOGREL BISULFATE 75 MG TAB PO SCH (08:18)
[2016-03-13] MEDS: DOCUSATE SODIUM 100 MG CAP PO SCH (08:18)
[2016-03-13] MEDS: CHOLECALCIFEROL 1000 INTER.UNIT TAB PO SCH (08:18)
[2016-03-13] MEDS: CYANOCOBALAMIN 500 MCG TAB (VIT B-12) PO SCH (08:18)
[2016-03-13] MEDS: PANTOprazole SOD 40 MG TAB PO SCH (08:18)
[2016-03-13] MEDS: MAGNESIUM OXIDE 400 MG TAB PO SCH (08:18)
[2016-03-13] MEDS: ASPIRIN 81 MG ECTAB PO SCH (08:19)
[2016-03-13] MEDS: CEROVITE ADV FORMULA TAB PO SCH (08:19)
[2016-03-13] MEDS: SENNA 8.6 MG TAB PO SCH (08:19)
[2016-03-13] MEDS: METOPROLOL TARTRATE 25 MG TAB PO SCH (08:19)
[2016-03-13] MEDS: ATORVASTATIN 20 MG TAB PO SCH (08:19)
[2016-03-13] MEDS: HYDROCHLOROTHIAZIDE 25 MG TAB PO SCH (08:19)
[2016-03-13] MEDS: INSULIN GLARGINE SOLOSTAR 100 UNITS/ML 3 ML PEN SC SCH (08:27)
[2016-03-13] MEDS: INSULIN ASPART 100 UNITS/ML 3 ML PEN SC SCH (08:27)
[2016-03-13] MEDS: CARBAMIDE PEROXIDE 6.5% 15 ML BTL OT SCH (08:28)
[2016-03-13] MEDS ORDERED: POLYETHYLENE (MIRALAX) 17 GM PACK PO SCH (09:00)
[2016-03-13] MEDS: TAMSULOSIN HCL 0.4 MG CAP PO SCH (09:17)
--- NOTE | 2016-03-13 09:35 | Pharmacy Progress Note ---
Glycemic Control: Progress Nt Date of Service Mar 13, 2016. Scope Glycemic Pharmacist consulted by Dr Dior on 03/12/16 for glycemic control and to write orders per [facility] inpatient glycemic control protocol. Objective Accuchecks BSG (last 24hrs): Test 03/12/16 11:34 03/13/16 07:20 Bedside Glucose 235 mg/dl (70-99) Random Glucose 136 mg/dl (70-99) Laboratory Data (last 24hrs) Test 03/13/16 07:20 Anion Gap 11.0 mmol/L BUN/Creatinine Ratio 17.9 Blood Urea Nitrogen 25 mg/dl Creatinine 1.40 mg/dl Potassium Level 4.0 mmol/L Sodium Level 136 mmol/L White Blood Count 4.59 K/uL HbA1c: Test 03/11/16 05:36 Hemoglobin A1c 7.0 % (4.5-5.6) H Recent Pertinent Medications Outpatient Anti-diabetic Regimen: * Lantus 10-13 units SQ q AM * NovoLog 6-8 units SQ with supper as directed * A1c = 7 % 03/11/16 The patient is currently receiving: * Basal insulin: Lantus 13 units SQ q AM * Correctional Insulin: NovoLog Correction per scale AC/HS Goal Range: Low 120 mg/dL - High 160 mg/dL Correction Factor: 30 mg/dL/unit * Prandial insulin: Per carb ratio of 1 unit per 10 grams CHO consumed Risk Factors for Insulin Resistance: * Steroids: none * Infection: pneumonia - current receiving Levaquin IV (day # 4) * Pressors: none * IVF: none * Recent Surgery: none * Diet: T2DM/AHA * Mechanical Ventilation: none Assessment & Plan ASSESSMENT: * ADA & AACE recommend a goal blood sugar range 140-180 mg/dl for the majority of critically ill & non-critically ill patients. However, more stringent targets may be selected in individual cases. 03/13/16 * 85 y/o type 2 diabetic who uses basal/bolus insulin as an outpatient with appropriate glycemic control as evidence by his most recent A1c. * Currently, he is receiving his home dose of Lantus and NovoLog AC and HS ( which is more frequent than his home dosing scheme) * BSGs have been well controlled (3 of 4 BSGs within goal range yesterday) * no change to current NovoLog regimen * Fasting BSG also appropriate * no change to current basal dosing Will sign off at this time as we have not made a change to inpatient glycemic regimen in 48 hours. Please re-consult us at anytime and thank you for allowing us to participate in the care of this patient. PLAN FOR INPATIENT GLYCEMIC CONTROL: * Continue home dosing of Lantus 13 units SQ daily * Continue NovoLog AC and HS * Correction factor: 30mg/dL/unit * Carb ratio: 1 unit per 10g of CHO consumed * Goal: 120-160mg/dL * A1c - current * added to discharge instructions RECOMMENDATIONS FOR DISCHARGE: * Likely, Mr. Lopez will be able to continue home insulin regimen at discharge * Please note that the plan above was derived based on current level of insulin resistance and hospital stress. These recommendations are appropriate for inpatient admission only. Plan of care upon discharge will need to be reassessed to avoid potential outpatient hypo/hyperglycemia. Thank you.
--- NOTE | 2016-03-13 10:23 | Progress Note ---
Subjective Date of Service: Mar 13, 2016. Subjective Pt evaluation today including: conversation w/ patient, physical exam, lab review, review of studies, review of inpatient medication list Saw/examined the patient in room 262 Doing well, no cough, breathing improved +bowel movement No other symptoms to note; denies fevers/chills Problem List Medical Problems: (1) Failure of outpatient treatment Status: Acute (2) Pneumonia Status: Acute (3) Shortness of breath Status: Acute Review of Systems Constitutional: No chills, No fever Respiratory: + cough (improved), No shortness of breath, No sputum Cardiac: No chest pain, No edema, No palpitations Abdomen: No constipation, No diarrhea, No nausea, No pain, No vomiting Medications Current Inpatient Medications Medications (Trade) Dose Ordered Sig/Guevara Route Start Time Stop Time Status Last Admin Dose Admin Ioversol (Optiray 320) 125 ml UD PRN IV 03/10/16 16:15 03/14/16 16:14 Enoxaparin Sodium (Lovenox Inj) 40 mg Q24H SQ 03/10/16 21:00 04/09/16 20:59 03/12/16 20:30 40 MG Acetaminophen (Tylenol Tab) 650 mg Q4H PRN PO 03/10/16 19:30 04/09/16 19:29 Ondansetron HCl 4 mg 4 mg Q6H PRN IV 03/10/16 19:30 04/09/16 19:29 03/11/16 13:00 4 MG Levofloxacin/Prmx (Levaquin / D5W/ Premixed D5W) 150 ml @ 100 mls/hr Q2D@1800 IV 03/12/16 18:00 03/17/16 17:59 03/12/16 18:00 100 MLS/HR Aspirin (Ecotrin Tab) 81 mg DAILY PO 03/11/16 09:00 04/10/16 08:59 03/13/16 08:19 81 MG Atorvastatin Calcium (Lipitor Tab) 20 mg DAILY PO 03/11/16 09:00 04/10/16 08:59 03/13/16 08:19 20 MG Cholecalciferol (Vitamin D Tab) 1,000 inter.unit DAILY PO 03/11/16 09:00 04/10/16 08:59 03/13/16 08:18 1,000 INTER.UNIT Clopidogrel Bisulfate (plAVix TAB) 75 mg DAILY PO 03/11/16 09:00 04/10/16 08:59 03/13/16 08:18 75 MG Cyanocobalamin (Vitamin B-12 Tab) 1,000 mcg DAILY PO 03/11/16 09:00 04/10/16 08:59 03/13/16 08:18 1,000 MCG Hydrochlorothiazide (Hydrochlorothiazide Tab) 25 mg DAILY PO 03/11/16 09:00 04/10/16 08:59 03/13/16 08:19 25 MG Insulin Glargine (Lantus Solostar Pen) 13 unit QAM SC 03/11/16 09:00 04/10/16 08:59 03/13/16 08:27 13 UNIT Lisinopril (Zestril Tab) 2.5 mg DAILY PO 03/11/16 09:00 04/10/16 08:59 03/13/16 08:18 2.5 MG Magnesium Oxide (Mag-Ox Tab) 400 mg DAILY PO 03/11/16 09:00 04/10/16 08:59 03/13/16 08:18 400 MG Metoprolol Tartrate (Lopressor Tab) 25 mg DAILY PO 03/11/16 09:00 04/10/16 08:59 03/13/16 08:19 25 MG Multivitamins/ Minerals (Multivitamin W/ Minerals Tab) 1 tab DAILY PO 03/11/16 09:00 04/10/16 08:59 03/13/16 08:19 1 TAB Tamsulosin HCl (Flomax Cap) 0.4 mg DAILY PO 03/11/16 09:00 04/10/16 08:59 03/13/16 09:17 0.4 MG Miscellaneous Information (Order Awaiting Action) 1 ea QS N/A 03/11/16 00:00 04/10/16 00:00 Psyllium Hydrophilic Mucilloid (Metamucil Powder) 1 pkt DAILY PO 03/11/16 09:00 04/10/16 08:59 03/13/16 08:16 1 PKT Insulin Aspart (novoLOG ASPART) SLIDING SCALE If C... ACHS SC 03/10/16 21:00 04/12/16 20:59 03/13/16 08:27 6 UNITS Glucose (Glucose 40% Gel) 15-30 GRAMS 15 GRAMS... UD PRN PO 03/10/16 19:45 04/09/16 19:44 Glucose (Glucose Chew Tab) 4-8 Tablets 4 Tabl... UD PRN PO 03/10/16 19:45 04/09/16 19:44 Dextrose (Dextrose 50% 50ML Syringe) 25-50ML OF 50% DW IV FOR... UD PRN IV 03/10/16 19:45 04/09/16 19:44 Glucagon (Glucagon Inj) 1 mg UD PRN SQ 03/10/16 19:45 04/09/16 19:44 Carbamide Peroxide (Earwax Removal Soln) 5 drops BID OT 03/10/16 21:00 03/14/16 20:59 03/12/16 08:39 5 DROPS Hydrocodone Bit/ Homatropine Methylb (Hycodan Syrup) 5 ml Q6H PRN PO 03/10/16 20:15 03/24/16 20:14 Docusate Sodium (coLACE CAP) 100 mg BID PO 03/11/16 21:00 04/10/16 20:59 03/13/16 08:18 100 MG Senna (Senokot Tab) 8.6 mg QAM PO 03/12/16 09:00 04/11/16 08:59 03/13/16 08:19 8.6 MG Pantoprazole Sodium (Protonix Tab) 40 mg QAM PO 03/12/16 09:00 04/11/16 08:59 03/13/16 08:18 40 MG Polyethylene (Miralax Powder Packet) 17 gm DAILY PO 03/13/16 09:00 04/12/16 08:59 03/13/16 08:16 17 GM Objective Vital Signs Date Time Temp Pulse Resp B/P Pulse Ox O2 Delivery O2 Flow Rate FiO2 03/13/16 08:10 Room Air 03/13/16 07:00 36.5 89 16 123/71 95 Room Air 03/13/16 00:00 96 Room Air 03/12/16 23:54 36.9 92 20 112/65 96 Room Air 03/12/16 16:14 Room Air 03/12/16 15:52 36.7 51 18 114/72 95 Room Air Physical Exam General Appearance: no apparent distress ENT: hearing grossly normal Neck: supple Respiratory/Chest: lungs clear, normal breath sounds, no respiratory distress, no accessory muscle use Cardiovascular: regular rate, rhythm, no edema, no murmur Abdomen: normal bowel sounds, non tender, soft Extremities: normal inspection, no pedal edema Neurologic/Psychiatric: no motor/sensory deficits, alert, normal mood/affect Laboratory Results Last 24 Hours Test 03/12/16 11:34 03/13/16 07:20 Bedside Glucose 235 mg/dl White Blood Count 4.59 K/uL Red Blood Count 4.27 M/uL Hemoglobin 13.2 g/dL Hematocrit 38.9 % Mean Corpuscular Volume 91.1 fL Mean Corpuscular Hemoglobin 30.9 pg Mean Corpuscular Hemoglobin Concent 33.9 g/dl RDW Standard Deviation 41.8 fL RDW Coefficient of Variation 12.6 % Platelet Count 129 K/uL Mean Platelet Volume 10.4 fL Sodium Level 136 mmol/L Potassium Level 4.0 mmol/L Chloride Level 100 mmol/L Carbon Dioxide Level 25 mmol/L Anion Gap 11.0 mmol/L Blood Urea Nitrogen 25 mg/dl Creatinine 1.40 mg/dl Est Creatinine Clear Calc Drug Dose 36.6 ml/min Estimated GFR () 52.4 Estimated GFR (Non- 45.2 BUN/Creatinine Ratio 17.9 Random Glucose 136 mg/dl Calcium Level 9.1 mg/dl Magnesium Level 1.9 mg/dl Assessment and Plan This is an 85 year old male with PMH of CAD, CKD stage 3, HTN, HLD, insulin dependent DM2 presented with dyspnea on exertion, SOB, chills - was started on Augmentin as an outpatient 2-3 days ago; but symptoms persisted Community Acquired Pneumonia 03/13 * CXR with no acute findings * clinically improved * will d/c home today on PO Levaquin 03/12 * feeling better today * continue Levaquin for now; will d/c home on PO Levaquin * recheck CXR in AM 03/11 * failed outpatient treatment with Augmentin * Chest CT IMPRESSION: 1. No evidence for pulmonary embolus. 2. Faint patchy perihilar groundglass densities. This likely represents a mild pneumonitis. 3. A few subcentimeter nodules within the right lower lobe with the largest measuring 6 mm. Please refer to the chart below for recommended follow-up. 4. A 3.5 cm right thyroid nodule. 5. A 12 mm hypodense lesion within the uncinate process of the pancreas. 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 * started on Levaquin * influenza negative * vitals, hemodynamically stable, WBC wnl GERD 03/12 * continue protonix, will d/c on PPI 03/11 * start PPI * worry about aspiration * CT shows pneumonitis, possible aspiration related? 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
[2016-03-13] MEDS ORDERED: LEVO-459 PO (10:27)
[2016-03-13] MEDS ORDERED: PANT40TA PO (10:27)
[2016-03-13] MEDS ORDERED: CARB1SOL9 OT (10:27)
--- NOTE | 2016-03-13 10:30 | Discharge Instructions ---
Discharge Instructions Admission Reason for Admission: Failure Of Outpatient Treatment, Pneumonia Discharge Discharge Diagnosis / Problem: Pneumonia Discharge Goals Goal(s): Decrease discomfort, Improve function Activity Recommendations Activity Limitations: resume your previous activity . Instructions / Follow-Up Instructions / Follow-Up Please follow-up with your primary care physician, Dr. Leyva - you will receive a phone call with an appointment date and time * You will be discharged on Levaquin (antibiotic) * You will be discharged on protonix (helps with reflux symptoms) * Outpatient f/u on thyroid nodule, lung nodule and pancreatic cyst Current Hospital Diet Patient's current hospital diet: Diabetes Type 2 Diet, AHA Diet (Heart Healthy) Discharge Diet Recommended Diet: Regular Diet Pending Studies Studies pending at discharge: no Laboratory Results Hemoglobin A1c Test 03/11/16 05:36 Range/Units Estimated Average Glucose 154 mg/dl Hemoglobin A1c 7.0 H 4.5-5.6 % Medical Emergencies . Who to Call and When: Medical Emergencies: If at any time you feel your situation is an emergency, please call 911 immediately. . Non-Emergent Contact Non-Emergency issues call your: Primary Care Provider . . "Provider Documentation" section prepared by Dolores Dior. VTE Core Measure Inpt VTE Proph given/why not?: Enoxaparin (Lovenox)SQ
--- NOTE | 2016-03-13 10:33 | Discharge Summary ---
Discharge Summary Admission Date: Mar 10, 2016 at 19:19 Discharge Date: Mar 13, 2016 Discharge Disposition: Home Principal Diagnosis: Community Acquired Pneumonia GERD Medication Reconciliation New Medications: Levofloxacin (Levaquin) 500 Mg Tab 500 MG PO Q2D for 5 Days, #3 TAB Pantoprazole Sodium (Protonix) 40 Mg Tab 40 MG PO DAILY, #30 TAB Carbamide Peroxide (Otic) (Eq Ear Wax Removal Aid) 6.5 % Rissa 5 DROPS OT BID for 5 Days, #1 BTL Continued Medications: Aspirin Enteric Coated (Ecotrin Or Generic *) 81 Mg Ectab 81 MG PO DAILY Atorvastatin (Lipitor) 20 Mg Tab 20 MG PO DAILY Cholecalciferol (Vitamin D3) 1,000 Unit Tab 1000 UNITS PO DAILY for 90 Days, TAB 3 Refills Clopidogrel (Plavix) 75 Mg Tab 75 MG PO DAILY Cyanocobalamin (Vitamin B-12) 1,000 Mcg Tab 1000 MCG PO DAILY, TAB Docusate Sodium (Docusate Sodium) 100 Mg Cap 100 MG PO DAILY for 7 Days, #7 CAP Hydrochlorothiazide (Hctz *) 25 Mg Tab 25 MG PO DAILY Ibuprofen (Ibuprofen) 600 Mg Tab 600 MG PO Q6 PRN for Pain Insulin Aspart (Novolog) 100 Units/Ml Inj 6-8 UNITS SQ QPM Insulin Glargine (Lantus Solostar) 100 Unit/Ml Inj 13 UNITS SC QAM, PEN Lisinopril (Zestril) 5 Mg Tab 2.5 MG PO DAILY, TAB Magnesium Oxide (Mag-Ox) 400 Mg Tab 400 MG PO DAILY, TAB Metoprolol Tartrate (Lopressor) (Lopressor) 25 Mg Tab 25 MG PO DAILY Metronidazole (Topical) (Metrocream) 0.75 % Cre 1 APPLN TOP DAILY, #45 GM 3 Refills Apply to nose daily Multiple Vitamins W/ Minerals (Centrum Silver Adult 50+) 1 Tab Tab 1 TAB PO DAILY Psyllium (Metamucil [facility] Fib) 63 % Pow 3.4 GM PO DAILY Tamsulosin HCl (Tamsulosin HCl) 0.4 Mg Cap 0.4 MG PO DAILY Discontinued Medications: Amoxicillin & Pot Clavulanate (Augmentin 875-125 mg) 1 Tab Tab 1 TAB PO BID, #14 TAB Admission Information HPI (per Admitting provider): This is an 85 year old male with PMH of CAD, DM type 2, HTN, HL, CKD stage III, who presents to the ED with cough. Patient follows with Dr. Leyva for primary care. Illness began approximately 3 weeks ago with dry cough, nasal congestion, intermittent RANDALL attributed to cough, increased JAQUEZ, lethargy, subjective chills and sweats. Patient states JAQUEZ was intermittent in the past several months but worsened a few weeks ago when he became ill. He is now JAQUEZ with one set of stairs. Patient was seen by Dr. Medellin on 03/05 and was prescribed Augmentin. Patient started Augmentin on 03/06 but stopped taking it over the weekend as he felt his symptoms were worsening despite the antibiotic. His appetite has been poor since illness began and reports weight loss of 10 lb in past few weeks. Denies aspiration. He denies sore throat, ear ache, chest pain, dyspnea at rest , abdominal pain, nausea, vomiting, diarrhea, urinary changes, edema, calf pain. Denies hx of lung disease. No recent hospitalization. No recent sick contact with URI symptoms. On review of Epic records patient was seen in [facility] on 02/08/16 for SOB and had CXR, CT chest, EKG, labs- unremarkable as per clinic follow up visit note. Physical Exam (per Admitting): General Appearance: WD/WN, no apparent distress, + pertinent finding ( pleasant elderly female ) Head: normocephalic, atraumatic Eyes: normal inspection, PERRL, EOMI, sclerae normal ENT: pharynx normal, + pertinent finding (bilateral canals obstructed by cerumen. hard of hearing. ) Neck: supple, no adenopathy, trachea midline Respiratory/Chest: no respiratory distress, no accessory muscle use, + decreased breath sounds, + pertinent finding (no wheezing, crackles, rhonchi) Cardiovascular: regular rate, rhythm, no murmur Abdomen/GI: normal bowel sounds, non tender, soft Extremities/Musculoskelatal: normal inspection, no calf tenderness, no pedal edema Neurologic/Psych: alert, normal mood/affect, oriented x 3, + pertinent finding (grossly nonfocal) Skin: normal color, warm/dry, + pertinent finding (plantar wart on left foot ) Hospital Course This is an 85 year old male with PMH of CAD, CKD stage 3, HTN, HLD, insulin dependent DM2 presented with dyspnea on exertion, SOB, chills - was started on Augmentin as an outpatient 2-3 days ago; but symptoms persisted Community Acquired Pneumonia 03/13 * CXR with no acute findings * clinically improved * will d/c home today on PO Levaquin 03/12 * feeling better today * continue Levaquin for now; will d/c home on PO Levaquin * recheck CXR in AM 03/11 * failed outpatient treatment with Augmentin * Chest CT IMPRESSION: 1. No evidence for pulmonary embolus. 2. Faint patchy perihilar groundglass densities. This likely represents a mild pneumonitis. 3. A few subcentimeter nodules within the right lower lobe with the largest measuring 6 mm. Please refer to the chart below for recommended follow-up. 4. A 3.5 cm right thyroid nodule. 5. A 12 mm hypodense lesion within the uncinate process of the pancreas. 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 * started on Levaquin * influenza negative * vitals, hemodynamically stable, WBC wnl GERD 03/12 * continue protonix, will d/c on PPI 03/11 * start PPI * worry about aspiration * CT shows pneumonitis, possible aspiration related? 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 Discharge Instructions Please follow-up with your primary care physician, Dr. Leyva - you will receive a phone call with an appointment date and time * You will be discharged on Levaquin (antibiotic) * You will be discharged on protonix (helps with reflux symptoms) * Outpatient f/u on thyroid nodule, lung nodule and pancreatic cyst
[2016-03-13 10:59] VITALS: BP 123/71; PULSE 89; TEMP 36.5; O2SAT 95
== END 2016-03-13 11:34 | disposition home or self-care (01) | DRG 194 ==
LOC: ENRESERVDT → ENRESERVTM → C.EDB 13:15 → C.MS2W 19:19
PROVIDERS: ADMIT Internal Medicine; ATTEND Family Medicine
DX: J18.9 Pneumonia, unspecified organism (principal); K86.2 Cyst of pancreas; E11.22 Type 2 diabetes mellitus with diabetic chronic kidney disease; I12.9 Hypertensive chronic kidney disease with stage 1 through stage 4 chronic kidney disease, or unspecified chronic kidney disease; N18.3 Chronic kidney disease, stage 3 (moderate); E78.5 Hyperlipidemia, unspecified; K21.9 Gastro-esophageal reflux disease without esophagitis; N40.0 Benign prostatic hyperplasia without lower urinary tract symptoms; K59.00 Constipation, unspecified; I25.10 Atherosclerotic heart disease of native coronary artery without angina pectoris; R91.1 Solitary pulmonary nodule; E04.1 Nontoxic single thyroid nodule; Z95.5 Presence of coronary angioplasty implant and graft; Z87.891 Personal history of nicotine dependence; Z79.02 Long term (current) use of antithrombotics/antiplatelets; Z79.4 Long term (current) use of insulin; Z79.82 Long term (current) use of aspirin; Z79.899 Other long term (current) drug therapy

== ENCOUNTER → 2016-09-15 | Outpatient (CLI) | payer OTHER ==
[~2016-09-15] MED LIST changes: +CARB1SOL9 OT; +CHOL1000 PO; +CYAN10005 PO; +DOCU100C31 PO; -GLC5 PO; -INSDGI SC; +INSDGIPEN SC; +LEVO-459 PO; +LISI-729 PO; +MAGN400T6 PO; +METR0.754 TOP; +MTR600 PO; +MULT-845 PO; +NVLG SQ; -PSYL55.43; +PSYL58.618 PO; -[UNRECOGNIZED DRUG - CODE]
--- NOTE | 2016-09-15 10:24 | DIAGNOSTIC IMAGING REPORT ---
(CHEST) THORAX WITHOUT CT DOSE: 502.95 mGy.cm CLINICAL HISTORY: 86 years-old Male with PULMONARY NODULE. Follow-up exam for pulmonary nodule and pneumonia. TECHNIQUE: Multiaxial CT images of the chest were performed without contrast. A dose lowering technique was utilized adhering to the principles of ALARA. COMPARISON: CTA of the chest 03/10/2016. FINDINGS: There is a low attenuating lesion again seen within the region of the right tracheoesophageal recess correlating with previous noted thyroid nodule measuring approximately 3.1 x 1.8 cm. No pathologic adenopathy of the chest is identified. Three-vessel distribution coronary arterial calcifications are seen. There is moderate atherosclerotic plaquing of the aorta. There is no pneumothorax or pleural effusion. Calcified granulomas seen within the lung bases. There is improved appearance of the patchy perihilar groundglass densities seen on comparison study. There is however mild persistent bronchial wall thickening with areas of persistent scattered nodularity, most pronounced in the right lower lobe are again nodules are seen measuring up to 6 mm. Some of these nodules may be due from prior exam. No significant growth from prior study is otherwise documented. Areas of minimal tree-in-bud nodularity are also seen within the lung bases. Central airways are patent with some mild nodularity seen along the right lateral wall of the trachea suggesting mucous secretions. 11 x 9 mm low attenuating lesion of the posterior right hepatic lobe is again seen suggesting IPMN. Degenerative changes involve the bilateral shoulders. IMPRESSION: 1. Improved appearance of the bilateral patchy perihilar groundglass densities as seen on comparison study. There is however residual bronchial wall thickening with scattered nodular opacities within the lung bases, right greater than left suggesting pneumonitis with bronchiolitis. 2. Noncalcified pulmonary nodules measuring up to 6 mm are again seen within the right lower lobe without significant growth from prior study. Follow-up according to the guidelines below recommended. 3. 11 x 9 mm low attenuating lesion of the posterior pancreatic head is again seen suggesting sidebranch IPMN, unchanged. 4. Right thyroid nodule, 3.1 cm. Electronically signed by: Cisco Maxwell M.D. 09/15/2016 10:23 AM Dictated Date/Time: 09/15/2016 10:12 AM
== END | disposition home or self-care (01) ==
LOC: C.CTS 09:50
PROVIDERS: ATTEND Family Medicine
DX: R91.8 Other nonspecific abnormal finding of lung field (principal)

== ENCOUNTER → 2016-11-03 | Outpatient (CLI) | payer OTHER ==
--- NOTE | 2016-11-03 13:29 | DIAGNOSTIC IMAGING REPORT ---
RIGHT UPPER EXT JOINT WITHOUT CLINICAL HISTORY: STRAIN OF R BICEPS,S46.211A Right TECHNIQUE: Multiaxial MRI acquisition COMPARISON STUDY: None FINDINGS: Findings of considerable soft tissue edematous change. This primarily within the subcutaneous fat. All major muscle bundles are intact. Biceps tendon is intact. There may be a mild biceps tendon strain at its insertion. Signal characteristics the osseous structures are unremarkable. There is no significant bone marrow replacing process. All additional musculotendinous structures are unremarkable. Articular services show minimal degenerative change. IMPRESSION: 1. Considerable soft tissue/subcutaneous fat edematous change 2. This potentially represents a soft tissue contusion. 3. Mild sprain of the biceps tendon. 4. No evidence for significant ligamentous or tendinous tear. The above report was generated using voice recognition software. It may contain grammatical, syntax or spelling errors. Electronically signed by: Jae Roy M.D. 11/03/2016 1:28 PM Dictated Date/Time: 11/03/2016 1:12 PM
== END | disposition home or self-care (01) ==
LOC: C.MRI 11:55
PROVIDERS: ATTEND Orthopaedic Surgery
DX: S46.211A Strain of muscle, fascia and tendon of other parts of biceps, right arm, initial encounter (principal); X58.XXXA Exposure to other specified factors, initial encounter

== ENCOUNTER 2016-12-20 20:40 | Emergency (ER) | payer OTHER ==
[~2016-12-20] VITALS: Ht 172.7 cm; Wt 81.0 kg
[2016-12-20 20:43] VITALS: TEMP 36.9; Ht 172.7 cm; Wt 81.0 kg
[2016-12-20] MEDS ORDERED: SODIUM CHLORIDE 0.9% 500ML 500 ML IV STA (20:49)
[2016-12-20] MEDS ORDERED: IPRATROPIUM BROMIDE NEB SOLN 0.02% 2.5 ML VIAL INH STA (20:49)
[2016-12-20] MEDS ORDERED: LEVALBUTEROL 1.25MG/0.5ML NEB INH STA (20:49)
[2016-12-20 21:12] VITALS: O2SAT 95
[2016-12-20 21:19] VITALS: PULSE 93; O2SAT 94
[2016-12-20 21:26] LABS: BASO % 0.3 %; BASO ABS # 0.03 K/uL (0-0.2); COMPLETE YES; HEMATOCRIT 40.9 % (42-52); IG% 0.7 %; LYMPH % 16.3 %; LYMPH ABS # 1.46 K/uL (1.2-3.4); MEAN CELL VOLUME 93.4 fL (80-100); MEAN CORPUSCULAR HEMOGLOBIN 30.4 pg (25-34); MEAN CORPUSCULAR HGB CONC 32.5 g/dl (32-36); MEAN PLATELET VOLUME 10.5 fL (7.4-10.4); MONO % 8.9 %; NEUT % 72.8 %; PLATELET COUNT 153 K/uL (130-400); RED BLOOD COUNT 4.38 M/uL (4.7-6.1); WHITE BLOOD COUNT 8.94 K/uL (4.8-10.8)
--- NOTE | 2016-12-20 21:27 | EMERGENCY ROOM VISIT NOTE ---
History Report prepared by Fabien: Josh Terrazas Under the Supervision of: Dr. Samir Xiong M.D. First contact with patient: 20:46 Chief Complaint: COUGH Stated Complaint: COLD,COUGH,FEVER History of Present Illness The patient is a 86 year old male who presents to the Emergency Room with complaints of a constant cough that began 8 days ago. The patient states that starting December 12, he has been experiencing a cough, shortness of breath, and fatigue. He describes his cough as dry with intermittent mucous production. The patient states that he was not able to sleep last night because of his persistent cough. He reports that he has also been experiencing a fever, which he reports was 100.5 this afternoon. The patient reports that he went to [facility] two days ago and was given Augmentin and Tessalon pearls. The patient admits that he had similar symptoms when he had pneumonia in February. The patient states that during that time, he had to stay in the hospital for three days. The patient states that his PCP is Dr. Leyva. He denies vomiting and leg swelling. Source of History: patient Onset: 8 days ago Position: other (global) Quality: other (dry, intermittently productive) Timing: constant Modifying Factors (Relieving): other (Augmentin, Tessalon pearls) Associated Symptoms: + fevers, + fatigue, No vomiting Review of Systems See HPI for pertinent positives & negatives. A total of 10 systems reviewed and were otherwise negative. Past Medical & Surgical Medical Problems: (1) BPH (benign prostatic hypertrophy) (2) CAD (coronary artery disease) (3) Chronic sinusitis (4) CKD (chronic kidney disease), stage III (5) DM type 2 (diabetes mellitus, type 2) (6) Hyperlipidemia (7) Hypertension (8) Nasal polyps Surgical Problems: (1) History of cataract surgery (2) S/P coronary artery stent placement (3) S/P tonsillectomy and adenoidectomy (4) Status post Mohs surgery Family History Diabetes mellitus MOTHER FH: cancer FATHER (colon CA) Hypertension DAUGHTER SON Social History Smoking Status: Never Smoker Drug Use: none Marital Status: Housing Status: lives with significant other Occupation Status: retired Current/Historical Medications Scheduled Albuterol Hfa (Ventolin Hfa), 3 PUFFS INH Q6H Aspirin (Aspirin Ec), 81 MG PO DAILY Atorvastatin (Lipitor), 20 MG PO DAILY Cholecalciferol (Vitamin D3), 1 TAB PO DAILY Clopidogrel (Plavix), 75 MG PO DAILY Cyanocobalamin (Vitamin B-12), 1,000 MCG PO DAILY Docusate Sodium (Colace), 1 CAP PO BID Finasteride (Proscar), 5 MG PO DAILY Hydrochlorothiazide (Hctz), 25 MG PO DAILY Insulin Aspart (Novolog Flexpen), 6-8 UNITS SC SUPPER Insulin Glargine (Lantus), 13 UNITS SC QAM Levofloxacin (Levaquin), 750 MG PO QD@08 Lisinopril (Zestril), 2.5 MG PO DAILY Magnesium Oxide (Mag-Ox), 400 MG PO DAILY Metoprolol Tartrate (Lopressor) (Lopressor), 25 MG PO DAILY Metronidazole (Topical) (Metrocream), 1 APPLN TOP DAILY Multiple Vitamins W/ Minerals (Centrum Silver 50+Men), 1 TAB PO DAILY Tamsulosin Hcl (Flomax), 0.4 MG PO DAILY Scheduled PRN Ibuprofen (Motrin), 600 MG PO Q6H PRN for Pain Allergies Coded Allergies: No Known Allergies (Verified , ., 12/20/16) Physical Exam Vital Signs Date Time Temp Pulse Resp B/P (MAP) Pulse Ox O2 Delivery O2 Flow Rate FiO2 12/20/16 23:08 97 22 167/80 93 12/20/16 22:20 95 17 177/81 94 Room Air 12/20/16 21:19 93 18 94 Room Air 12/20/16 21:12 92 21 168/77 95 Room Air 12/20/16 21:12 95 Room Air 12/20/16 21:11 93 12/20/16 20:43 36.9 100 20 199/77 92 Room Air Physical Exam GENERAL: Patient is in no acute distress. HEENT: No acute trauma, normocephalic atraumatic, mucous membranes moist, no nasal congestion, no scleral icterus. NECK: No stridor, no adenopathy, no meningismus, trachea is midline. LUNGS: Diminished breath sounds. Few scattered crackles. No wheezing. Breath sounds are equal. HEART: Without murmurs gallops or rubs, regular rate and rhythm. ABDOMEN: Soft, nontender, bowel sounds positive, no hernias, no peritonitis. EXTREMITIES: No cyanosis. Mild bilateral pedal edema. Full range of motion of all the joints without pain or difficulty, no signs for acute trauma. NEUROLOGIC: Oriented x 3, no acute motor or sensory deficits, no focal weakness. SKIN: No rash, no jaundice, no diaphoresis. Medical Decision & Procedures ER Provider Diagnostic Interpretation: X-ray results as stated below per interpretation by me and the radiologist: CHEST ONE VIEW PORTABLE CLINICAL HISTORY: EVALUATE RESPIRATORY DISTRESS.DYSPNEA dyspnea COMPARISON STUDY: 03/13/2016 FINDINGS: Minimal parenchymal infiltrate right to lesser extent left base. Lungs otherwise appear clear. No evidence for cardiac enlargement. Diaphragms are smooth. IMPRESSION: Minimal basilar infiltrative change. Otherwise negative study. The above report was generated using voice recognition software. It may contain grammatical, syntax or spelling errors. Electronically signed by: Jae Roy M.D. 12/20/2016 10:12 PM Dictated Date/Time: 12/20/2016 10:11 PM Laboratory Results 12/20/16 21:05 Red Blood Count 4.38, Mean Corpuscular Volume 93.4, Mean Corpuscular Hemoglobin 30.4, Mean Corpuscular Hemoglobin Concent 32.5, Mean Platelet Volume 10.5, Neutrophils (%) (Auto) 72.8, Lymphocytes (%) (Auto) 16.3, Monocytes (%) (Auto) 8.9, Eosinophils (%) (Auto) 1.0, Basophils (%) (Auto) 0.3, Neutrophils # (Auto) 6.50, Lymphocytes # (Auto) 1.46, Monocytes # (Auto) 0.80, Eosinophils # (Auto) 0.09, Basophils # (Auto) 0.03 12/20/16 21:05 Test 12/20/16 21:05 White Blood Count 8.94 K/uL (4.8-10.8) Red Blood Count 4.38 M/uL (4.7-6.1) Hemoglobin 13.3 g/dL (14.0-18.0) Hematocrit 40.9 % (42-52) Mean Corpuscular Volume 93.4 fL (80-100) Mean Corpuscular Hemoglobin 30.4 pg (25-34) Mean Corpuscular Hemoglobin Concent 32.5 g/dl (32-36) Platelet Count 153 K/uL (130-400) Mean Platelet Volume 10.5 fL (7.4-10.4) Neutrophils (%) (Auto) 72.8 % Lymphocytes (%) (Auto) 16.3 % Monocytes (%) (Auto) 8.9 % Eosinophils (%) (Auto) 1.0 % Basophils (%) (Auto) 0.3 % Neutrophils # (Auto) 6.50 K/uL (1.4-6.5) Lymphocytes # (Auto) 1.46 K/uL (1.2-3.4) Monocytes # (Auto) 0.80 K/uL (0.11-0.59) Eosinophils # (Auto) 0.09 K/uL (0-0.5) Basophils # (Auto) 0.03 K/uL (0-0.2) RDW Standard Deviation 42.7 fL (36.4-46.3) RDW Coefficient of Variation 12.5 % (11.5-14.5) Immature Granulocyte % (Auto) 0.7 % Immature Granulocyte # (Auto) 0.06 K/uL (0.00-0.02) Prothrombin Time 10.5 SECONDS (9.0-12.0) Prothromb Time International Ratio 1.0 (0.9-1.1) Activated Partial Thromboplast Time 27.7 SECONDS (21.0-31.0) Partial Thromboplastin Ratio 1.1 Anion Gap 5.0 mmol/L (3-11) Est Creatinine Clear Calc Drug Dose 36.5 ml/min Estimated GFR () 52.9 Estimated GFR (Non- 45.6 BUN/Creatinine Ratio 20.5 (10-20) Lactic Acid Level 1.1 mmol/L (0.4-2.0) Calcium Level 8.8 mg/dl (8.5-10.1) Total Bilirubin 0.5 mg/dl (0.2-1) Aspartate Amino Transf (AST/SGOT) 14 U/L (15-37) Alanine Aminotransferase (ALT/SGPT) 16 U/L (12-78) Alkaline Phosphatase 62 U/L (45-117) Troponin I < 0.015 ng/ml (0-0.045) Total Protein 7.6 gm/dl (6.4-8.2) Albumin 3.4 gm/dl (3.4-5.0) Globulin 4.2 gm/dl (2.5-4.0) Albumin/Globulin Ratio 0.8 (0.9-2) Laboratory results reviewed by me. Medications Administered Medications (Trade) Dose Ordered Sig/Guevara Route Start Time Stop Time Status Last Admin Dose Admin Sodium Chloride 500 ml @ 999 mls/hr Q31M STAT IV 12/20/16 20:49 12/20/16 21:19 DC 12/20/16 21:15 999 MLS/HR Levalbuterol (Xopenex 1.25MG/ 0.5ML Neb) 1.25 mg NOW STAT INH 12/20/16 20:49 12/20/16 20:54 DC 12/20/16 21:19 1.25 MG Ipratropium [place] (Atrovent 0.02% 0.5MG/2.5ML Neb) 0.5 mg NOW STAT INH 12/20/16 20:49 12/20/16 20:54 DC 12/20/16 21:18 0.5 MG Levofloxacin (Levaquin Tab) 750 mg NOW STAT PO 12/20/16 22:36 12/20/16 22:38 DC 12/20/16 22:49 750 MG Albuterol (Ventolin Hfa Inhaler) 2 puffs NOW ONCE INH 12/20/16 22:45 12/20/16 22:46 DC 12/20/16 22:51 2 PUFFS ECG Indication: SOB/dyspnea Rate (beats per minute): 92 Rhythm: sinus rhythm Findings: PAC, no acute ischemic change ED Course 2047: The patient was evaluated in room B11B. A complete history and physical exam was performed. 2048: Ordered Ipratropium [place] 0.5 mg INH, Levalbuterol 1.25 mg INH, Sodium Chloride 500 ml @ 999 mls/hr IV. 2234: Reevaluated the patient. Discussed results and discharge instructions: He verbalized understanding and agreement. The patient is ready for discharge. 2235: Ordered Levofloxacin 750 mg PO. 2244: Ordered Albuterol 2 puffs INH. Medical Decision The patient is a 86 year old male who presents to the ED with complaints of constant cough that started 8 days ago. Differential diagnoses considered include pneumonia or bronchitis, heart failure, anemia, electrolyte imbalance, viral illness, CHF. There is no leukocytosis or concerning anemia. No significant electrolyte abnormality, kidney failure or hepatitis. Chest x-ray shows potential pneumonia at the bases, no CHF or pneumothorax. EKG shows a sinus rhythm, no acute ischemia. Cardiac enzyme testing times one is not consistent with acute cardiac injury. Lactic acid level is not elevated making sepsis less likely. Blood cultures are pending. There is no coagulopathy. The patient presents with over one week of a cough. He has been using Augmentin without relief. On exam, he is not febrile or toxic. He is not hypoxic. The patient was given a Xopenex Atrovent neb, he received albuterol via MDI. He was given a dose of oral Levaquin. He received a bolus of IV saline. The patient looks well, I talked about admission versus discharge, he feels comfortable going home, his family is comfortable as well. The patient will be on Levaquin and albuterol. He can continue the Tessalon Perles. He will stop the Augmentin. If his breathing worsens, he will report back to the ER. If doing okay, he will see his doctor this week for a recheck. Medication Reconcilliation Current Medication List: was personally reviewed by me Blood Pressure Screening Patient's blood pressure: Elevated blood pressure Blood pressure disposition: Elevated BP felt to be situational Impression Primary Impression: PNA (pneumonia) Scribe Attestation The scribe's documentation has been prepared under my direction and personally reviewed by me in its entirety. I confirm that the note above accurately reflects all work, treatment, procedures, and medical decision making performed by me. Departure Information Dispostion Home / Self-Care Prescriptions Albuterol Hfa (VENTOLIN HFA) 200 Puffs/30835 Mcg Aers 3 PUFFS INH Q6H, #1 INHALER Prov: Samir Xiong M.D. 12/20/16 Levofloxacin (Levaquin) 750 Mg Tab 750 MG PO QD@08, #9 TAB Prov: Samir Xiong M.D. 12/20/16 Referrals No Doctor, Assigned (PCP) Houston Leyva M.D. Forms HOME CARE DOCUMENTATION FORM, IMPORTANT VISIT INFORMATION Patient Instructions My [facility] Additional Instructions stop the augmentin continue the cough meds start levaquin daily for 9 more days use albuterol 3 puffs every 6 hours see kevin glaser this week return for worsening breathing or if not improving
[2016-12-20 21:36] LABS: PARTIAL THROMBOPLASTIN RATIO 1.1; PROTHROMBIN TIME (PATIENT) 10.5 SECONDS (9.0-12.0)
[2016-12-20 21:39] LABS: ALT/SGPT 16 U/L (12-78); BLOOD UREA NITROGEN 28 mg/dl (7-18); BUN/CREATININE RATIO 20.5 (10-20); CALCIUM 8.8 mg/dl (8.5-10.1); CARBON DIOXIDE 30 mmol/L (21-32); CHLORIDE 99 mmol/L (98-107); CREATININE 1.38 mg/dl (0.60-1.40); GLUCOSE 146 mg/dl (70-99); POTASSIUM 3.8 mmol/L (3.5-5.1); SODIUM 134 mmol/L (136-145)
[2016-12-20 21:44] LABS: ALB/GLOB RATIO 0.8 (0.9-2); ALKALINE PHOSPHATASE 62 U/L (45-117); AST/SGOT 14 U/L (15-37)
[2016-12-20] MEDS ORDERED: ATOR-22 PO (22:04)
[2016-12-20] MEDS ORDERED: HYDR25TA4 PO (22:04)
[2016-12-20] MEDS ORDERED: MULT-1093 PO (22:04)
[2016-12-20] MEDS ORDERED: LISI-729 PO (22:04)
[2016-12-20] MEDS ORDERED: ASPI81TA28 PO (22:04)
[2016-12-20] MEDS ORDERED: CHOL1000 PO (22:04)
[2016-12-20] MEDS ORDERED: TAMS0.4C38 PO (22:04)
[2016-12-20] MEDS ORDERED: DOCU-94 PO (22:04)
[2016-12-20] MEDS ORDERED: MAGN400T6 PO (22:04)
[2016-12-20] MEDS ORDERED: NVLGI/PEN SC (22:04)
[2016-12-20] MEDS ORDERED: CYAN10005 PO (22:04)
[2016-12-20] MEDS ORDERED: CLOP1TAB15 PO (22:04)
[2016-12-20] MEDS ORDERED: METO25TA56 PO (22:04)
[2016-12-20] MEDS ORDERED: INSDGI SC (22:04)
[2016-12-20] MEDS ORDERED: FINA5TAB PO (22:04)
[2016-12-20] MEDS ORDERED: IBUP-1450 PO (22:04)
--- NOTE | 2016-12-20 22:13 | DIAGNOSTIC IMAGING REPORT ---
CHEST ONE VIEW PORTABLE CLINICAL HISTORY: EVALUATE RESPIRATORY DISTRESS.DYSPNEA dyspnea COMPARISON STUDY: 03/13/2016 FINDINGS: Minimal parenchymal infiltrate right to lesser extent left base. Lungs otherwise appear clear. No evidence for cardiac enlargement. Diaphragms are smooth. IMPRESSION: Minimal basilar infiltrative change. Otherwise negative study. The above report was generated using voice recognition software. It may contain grammatical, syntax or spelling errors. Electronically signed by: Jae Roy M.D. 12/20/2016 10:12 PM Dictated Date/Time: 12/20/2016 10:11 PM
[2016-12-20] MEDS ORDERED: LEVOFLOXACIN 250 MG TAB PO STA (22:36)
[2016-12-20] MEDS ORDERED: VNTHFA/IN INH (22:40)
[2016-12-20] MEDS ORDERED: LEVO1TAB35 PO (22:40)
[2016-12-20] MEDS ORDERED: ALBUTEROL HFA 8 GM INHALER INH ONE (22:45)
[2016-12-20 23:08] VITALS: BP 167/80; PULSE 97; O2SAT 93
== END 2016-12-20 23:10 | disposition home or self-care (01) ==
LOC: C.EDB 20:41
DX: J18.9 Pneumonia, unspecified organism (principal); R50.9 Fever, unspecified; E11.22 Type 2 diabetes mellitus with diabetic chronic kidney disease; I12.9 Hypertensive chronic kidney disease with stage 1 through stage 4 chronic kidney disease, or unspecified chronic kidney disease; N18.3 Chronic kidney disease, stage 3 (moderate); I25.10 Atherosclerotic heart disease of native coronary artery without angina pectoris

== ENCOUNTER → 2017-01-23 | Outpatient (CLI) | payer OTHER ==
[~2017-01-23] MED LIST changes: -ASPEC81 PO; +ASPI81TA28 PO; -CARB1SOL9 OT; +DOCU-94 PO; -DOCU100C31 PO; +FINA5TAB PO; -FLM4 PO; -HYDC25 PO; +HYDR25TA4 PO; +IBUP-1450 PO; +INSDGI SC; -INSDGIPEN SC; -LEVO-459 PO; +LEVO1TAB35 PO; -MTR600 PO; +MULT-1093 PO; -MULT-845 PO; -NVLG SQ; +NVLGI/PEN SC; -PSYL58.618 PO; +TAMS0.4C38 PO; +VNTHFA/IN INH
[2017-01-23 12:19] LABS: ESTIMATED AVERAGE GLUCOSE 143 mg/dl; HA1C FLAG Normal (Normal)
[2017-01-23 12:29] LABS: RATIO 17.3 mcg/mg (0-30.0)
== END | disposition home or self-care (01) ==
LOC: C.LABPBG 08:27
PROVIDERS: ATTEND Nurse Practitioner Adult Health
DX: E11.49 Type 2 diabetes mellitus with other diabetic neurological complication (principal); Z51.81 Encounter for therapeutic drug level monitoring; Z79.4 Long term (current) use of insulin

== ENCOUNTER → 2017-06-08 | Outpatient (CLI) | payer OTHER ==
[2017-06-08 13:09] LABS: HEMOGLOBIN A1C 6.6 % (4.5-5.6)
== END | disposition home or self-care (01) ==
LOC: C.LABPBG 08:12
PROVIDERS: ATTEND Nurse Practitioner Adult Health
DX: E11.49 Type 2 diabetes mellitus with other diabetic neurological complication (principal)

== ENCOUNTER → 2017-09-15 | Outpatient (CLI) | payer OTHER ==
[~2017-09-15] MED LIST changes: -LEVO1TAB35 PO; -VNTHFA/IN INH
--- NOTE | 2017-09-15 11:33 | DIAGNOSTIC IMAGING REPORT ---
(CHEST) THORAX WITHOUT CLINICAL HISTORY: LUNG NODULES COMPARISON STUDY: 09/15/2016 CT DOSE: 310.63 mGy.cm TECHNIQUE: CT of the thorax was performed from the thoracic inlet to the lung bases. Images are reviewed in the axial, sagittal, and coronal planes. IV contrast was not administered for this examination. A dose lowering technique was utilized adhering to the principles of ALARA. FINDINGS: Thyroid: There is a multinodular thyroid goiter including a 23 mm lower pole right lobe nodule. There is a dense left lobe. Calcification. Thoracic aorta: The ascending thoracic aorta measures 36 mm. Heart: The heart is normal in size. There are coronary artery calcifications. Lungs and pleural spaces: There are no pleural effusions. There is respiratory motion artifact. There are in excess of 10 bilateral solid point nodules. The largest is located within the right lower lobe measuring 7 mm. The nodules are felt to be essentially unchanged. Mediastinum: There is no evidence of pathologic mediastinal lymphadenopathy Michelle: There is no evidence of pathologic adenopathy given the limitations of a noncontrast study Axilla: There is no evidence of pathologic axillary lymphadenopathy Upper abdomen: Partially visualized upper abdominal viscera is within normal limits. Skeletal structures: There are no lytic or blastic osseous lesions. IMPRESSION: 1. Multiple bilateral subcentimeter pulmonary nodules, unchanged from the prior August 2016 and February 2016 studies 2. Multinodular thyroid gland Electronically signed by: Golden Campa M.D. 09/15/2017 11:31 AM Dictated Date/Time: 09/15/2017 11:26 AM
== END | disposition home or self-care (01) ==
LOC: C.CTS 11:02
PROVIDERS: ATTEND Family Medicine
DX: R91.8 Other nonspecific abnormal finding of lung field (principal)